=== PATIENT | female | born 1965 | race African-American/Black ===

== ENCOUNTER 2017-04-07 02:55 | Inpatient (IN) | payer MEDICARE ==
[2017-04-07] MEDS ORDERED: FAMOTIDINE INJ/PF 20 MG/2 ML SDV IV ONE (04:00)
[2017-04-07] MEDS ORDERED: METHYLPREDNISOLONE INJ 125 MG/2 ML SDV IV ONE (04:00)
[2017-04-07] MEDS ORDERED: EPINEPHRINE INJ/PF 1 MG/1 ML AMPULE IM ONE ×3 (04:00→05:59)
[2017-04-07] MEDS ORDERED: DIPHENHYDRAMINE HCL 50 MG/ML VIAL IV ONE (04:00)
[2017-04-07] MEDS ORDERED: NORMAL SALINE 250 ML IV PRN (04:01)
--- NOTE | 2017-04-07 04:08 | ER Document Report ---
ED General - General Chief Complaint: Allergic Reaction Stated Complaint: SWOLLEN TONGUE AND LIPS Time Seen by Provider: 04/07/17 03:56 Notes: Patient is a 51-year-old female presents with complaint of swollen tongue and lips having some difficulty swallowing. Patient says she felt like she was having a little bit difficulty swallowing last night before she went to bed and she woke up tonight her tongue swelling and her voice is very hoarse. She has never had this happen before. She does not take any ASHOK inhibitors. She has no new medications. She is on chronic pain medication as well as hydrochlorothiazide and amlodipine for high blood pressure. She denies any recent fevers or infections. No other complaints at this time. No rash. No itching. TRAVEL OUTSIDE OF THE [place] IN LAST 30 DAYS: No Past Medical History - Social History Smoking Status: Current Every Day Smoker Frequency of alcohol use: None Drug Abuse: None Family History: Reviewed & Not Pertinent Renal/ Medical History: Denies: Hx Peritoneal Dialysis Review of Systems - Review of Systems Notes: My Normal Review Basic REVIEW OF SYSTEMS: CONSTITUTIONAL : Denies fever, chills, or sweats. Denies recent illness. EENT: Increased tongue swelling. Some difficulty swallowing. CARDIOVASCULAR: Denies chest pain. RESPIRATORY: Denies cough, cold, or chest congestion. Denies shortness of breath, difficulty breathing, or wheezing. GASTROINTESTINAL: Denies abdominal pain. Denies nausea, vomiting, or diarrhea. Denies constipation. Last BM: MUSCULOSKELETAL: Denies neck or back pain or joint pain or swelling. SKIN: Denies rash or skin lesions. NEUROLOGICAL: Denies altered mental status or loss of consciousness. Denies headache. Denies weakness or paralysis or loss of use of either side. Denies problems with gait or speech. Denies sensory or motor loss. ALL OTHER SYSTEMS REVIEWED AND NEGATIVE. Physical Exam - Vital signs Vitals: Temp Pulse Resp BP Pulse Ox 98.5 F 108 H 16 118/66 97 04/07/17 03:01 04/07/17 03:01 04/07/17 03:01 04/07/17 03:01 04/07/17 03:01 - Notes Notes: General Appearance: Well nourished, alert, cooperative, no acute distress, no obvious discomfort. No stridor. Some hoarseness of voice. Vitals: reviewed, See vital signs table. Head: no swelling or tenderness to the head Eyes: PERRL, EOMI, Conjuctiva clear Mouth: Some tongue enlargement from swelling. Lips appear normal size to me. Throat: Difficult to see full tonsillar beds due to tongue swelling., No airway obstruction, No lymphadenopathy Neck: Supple, no neck tenderness, No thyromegaly Lungs: No wheezing, No rales, No rhonci, No accessory muscle use, good air exchange bilaterally. Heart: Normal rate, Regular rythm, No murmur, no rub Abdomen: Normal BS, soft, No rigidity, No abdominal tenderness, No guarding, no rebound, no abdominal masses, no organomegaly Extremities: strength 5/5 in all extremities, good pulses in all extremities, no swelling or tenderness in the extremities, no edema. Skin: warm, dry, appropriate color, no rash Neuro: speech clear, oriented x 3, normal affect, responds appropriately to questions. Course - Re-evaluation Re-evalutation: 04/07/17 04:35 Patient feels as if she has had some slight improvement after the medications given. I will give her another dose of epinephrine and will continue to monitor to make sure she continues to improve. 04/07/17 05:11 Patient's voice is getting more hoarse and she is having some difficulty breahting now. I talked to her and have informed her that I feel elective intubation is appropriate at this time as any worsening of her airway status will be life threatening and we may not be able to protect her airway if we wait any longer. Patietn is agreeable to intubaiton. I will first do an awake look with ketamine and a glidescope. If i have good visualization that I will proceed with intubation. If visualation is poor than I will contact anesthesia for fiberoptic help. 04/07/17 06:00 I gave the patient 80 mg of ketamine. This provided some sedation. I used a glide scope to do an weight work. Glottis was very edematous. It is too edematous to pass the tube. This was aborted. I allowed patient's awake. Anesthesia and surgery called in. We discussed further care. Anesthesia does not feel comfortable attempting a second intubation. Patient will be taken to the OR fo surgical airway placement. Patient informed of what is going on and agrees with plan. - Vital Signs Vital signs: Temp Pulse Resp BP Pulse Ox 98.5 F 108 H 18 120/86 H 96 04/07/17 03:01 04/07/17 03:01 04/07/17 04:27 04/07/17 04:15 04/07/17 04:16 - Laboratory Result Diagrams: 04/07/17 04:15 04/07/17 04:15 Laboratory results interpreted by me: 04/07/17 04:15 Potassium 3.5 L BUN 23 H Calcium 10.3 H Discharge - Discharge Clinical Impression: Laryngeal edema Angio-edema Qualifiers: Encounter type: initial encounter Qualified Code(s): T78.3XXA - Angioneurotic edema, initial encounter Condition: Serious Admitting Provider: Surgicalist Unit Admitted: OR
[2017-04-07 04:38] LABS: ABSOLUTE LYMPHOCYTES (AUTO) 2.1 10^3/uL (0.5-4.7); ABSOLUTE MONOCYTES (AUTO) 0.6 10^3/uL (0.1-1.4); ABSOLUTE NEUT (AUTO) 7.7 10^3/uL (1.7-8.2); BASOPHILS % (AUTO) 0.2 % (0-2); EOSINOPHILS % (AUTO) 0.4 % (0-6); HEMATOCRIT 40.6 % (36.0-47.0); HEMOGLOBIN 14.2 g/dL (12.0-15.5); LYMPHOCYTES % (AUTO) 19.7 % (13-45); MEAN CORPUSCULAR HGB CONC 35.1 g/dL (32.0-36.0); MEAN CORPUSCULAR VOLUME 94 fl (80-97); RED BLOOD COUNT 4.31 10^6/uL (3.72-5.28); RED CELL DISTRIBUTION WIDTH 12.8 % (11.5-14.0); SEGMENTED NEUTROPHILS % (AUTO) 73.7 % (42-78); WHITE BLOOD COUNT 10.5 10^3/uL (4.0-10.5)
[2017-04-07 04:51] LABS: ANION GAP 11 (5-19); BLOOD UREA NITROGEN 23 mg/dL (7-20); CALCIUM 10.3 mg/dL (8.4-10.2); CARBON DIOXIDE 27 mmol/L (22-30); CHLORIDE 105 mmol/L (98-107); CREATININE RESULT 0.82 mg/dL (0.52-1.25); GLUCOSE 107 mg/dL (75-110); POTASSIUM 3.5 mmol/L (3.6-5.0); SODIUM 143.4 mmol/L (137-145)
[2017-04-07] MEDS ORDERED: RACEPINEPHRINE HCL 2.25% NEB 0.5 ML AMPUL NEB ONE ×2 (05:10→05:14)
[2017-04-07] MEDS ORDERED: KETAMINE HCL INJ 500 MG/10 ML VIAL ONE ×2 (05:15→06:24)
[2017-04-07] MEDS ORDERED: ETOMIDATE INJ/PF 20 MG/10 ML SDV IV ONE ×2 (05:15→05:16)
[2017-04-07] MEDS ORDERED: SUCCINYLCHOLINE CHLORIDE INJ 200 MG/10 ML VIAL IV ONE (05:16)
[2017-04-07] MEDS ORDERED: KETAMINE HCL INJ 500 MG/10 ML VIAL IV ONE (05:16)
[2017-04-07] MEDS ORDERED: PROPOFOL 100 ML IV ONE ×2 (05:51→08:06)
[2017-04-07] MEDS ORDERED: BUPIVACAINE HCL 0.25 % INJ/PF (2.5 MG/1 ML) 30 ML VIAL ONE (06:20)
[2017-04-07] MEDS ORDERED: LIDOCAINE 1% INJ-PF (10 MG/ML) 30 ML SDV ONE ×2 (06:22→06:35)
[2017-04-07] MEDS ORDERED: LIDOCAINE 1% INJ-PF (10 MG/ML) 30 ML SDV INJ ONE ×2 (06:23)
[2017-04-07] MEDS ORDERED: MIDAZOLAM 2 MG/2 ML INJ ONE (06:25)
[2017-04-07] MEDS ORDERED: PROPOFOL INJ 200 MG/20 ML VIAL IV ONE (07:05)
[2017-04-07] MEDS ORDERED: CEFAZOLIN INJ 1 GM VIAL ONE (07:09)
[2017-04-07] MEDS ORDERED: EPHEDRINE SULFATE INJ 50 MG/1 ML AMPULE ONE (07:16)
[2017-04-07] MEDS ORDERED: GLUCAGON,HUMAN RECOMB 1 MG INJ SUBCUT PRN (07:41)
[2017-04-07] MEDS ORDERED: DEXTROSE 50%-WATER 25 GM/50 ML DISP.SYRIN IV PRN ×2 (07:41)
[2017-04-07] MEDS ORDERED: DEXTROSE 40% GEL 15 GM TUBE PO PRN ×2 (07:41)
[2017-04-07] MEDS ORDERED: ONDANSETRON HCL INJ/PF 4 MG/2 ML SDV IV PRN (07:47)
[2017-04-07] MEDS ORDERED: MORPHINE SULFATE 10 MG/ML INJ IV PRN (07:47)
--- NOTE | 2017-04-07 07:53 | OPERATIVE REPORT E ---
Operative Report NAME: JOCELINE GURROLA : 1965 AGE: 51Y DATE OF SURGERY: 04/07/2017 ROOM: ED70 PROCEDURE: Tracheostomy. SURGEON: ANJEL KELLEY M.D. ANESTHESIA: Local MAC. PREOPERATIVE DIAGNOSIS: Angioedema with markedly enlarged tongue and inability to see the vocal cords on an attempt to intubate here. POSTOPERATIVE DIAGNOSIS: Angioedema with markedly enlarged tongue and inability to see the vocal cords on an attempt to intubate here. INDICATION: This is a 51-year-old female who woke up at 2:00 this morning with thickened tongue and difficulty swallowing. Patient immediately went to the emergency room where the ER physician attempted to intubate. Unfortunately, the tongue was so enlarged and ER doctor was not able to see the vocal cords. In the meantime, the patient started to have some difficulty breathing. Because of the difficulty intubating, patient was then taken to the OR after seen by the anesthesiologist. DESCRIPTION OF PROCEDURE: The patient was placed in the supine position and the neck extended and then prepped and draped in the usual sterile fashion. Local anesthesia infiltrated on the midline from the thyroid to the sternal notch. An incision made deep and down in the subcu area with the use of cautery. Further blunt dissection was done and also the use of cautery. The anterior fascia was also identified and divided after placement of local anesthesia. This divided the use of cautery. The muscles on 8 sides were . Next, the trachea was identified. What appears to be the second tracheal ring was then elevated after injecting it with Xylocaine and also injecting down to the fourth ring. Next, the third and fourth tracheal rings were then divided longitudinally with an 11-blade and cruciate incision also made in the middle. Next, with the use of dilator, a number 6 tracheal Shiley tube was in place. It was then connected to the respirator. At this point, patient was given more sedation. The trach was then anchored to the skin with 2-0 Prolene on its 4 corners. The subcu was partially reapproximated with 2-0 PDS. A Xeroform gauze was then placed around the trach. A trach was then placed around the neck and placed through the tracheostomy phalanges. Patient tolerated procedure well. Estimated blood loss was minimal, less than 5 mL. Patient brought to the intensive care unit in guarded condition. DICTATING PHYSICIAN: ANJEL KELLEY M.D. [id number] PHY#: [id number] ID: [id number] JOB#: [id number] ACCT: [id number] cc:ANJEL KELLEY M.D. >
[2017-04-07 08:11] LABS: ARTERIAL BLOOD BASE EXCESS 0.3 mmol/L; ARTERIAL BLOOD O2 SATURATION 94.3 % (94-98)
--- NOTE | 2017-04-07 08:13 | HISTORY AND PHYSICAL E ---
History and Physical NAME: JOCELINE GURROLA : 1965 AGE: 51Y ADMITTED: 04/07/2017 ROOM: 611 CHIEF COMPLAINT: Swollen tongue, difficulty swallowing, and hoarseness. HISTORY OF PRESENT ILLNESS: This is a 51-year-old female who presented to the emergency room with swollen tongue and lips with difficulty swallowing. Patient claims she had some difficulty swallowing last night before she went to bed. Then, she woke up around 2:00 a.m. with her tongue swollen and her voice very hoarse. She never had these episodes in the past. She does not take any ASHOK inhibitors. She has no new medications. She is on chronic pain medication as well as hydrochlorothiazide and amlodipine for high blood pressure. Denies any itching or rash, fever, or chills. SOCIAL HISTORY: Smokes every day. Denies alcohol use. Denies drug abuse. FAMILY HISTORY: Noncontributory. REVIEW OF SYSTEMS: CONSTITUTIONAL: Denies fever, chills, or sweats. ENT: Increased tongue swelling with difficulty swallowing. CARDIOVASCULAR: Denies any chest pains RESPIRATORY: Denies cough, cold, or shortness of breath. GASTROINTESTINAL: Denies abdominal pains, nausea, vomiting, or diarrhea. MUSCULOSKELETAL: Denies back pains. SKIN: Denies rash or itching. NEUROLOGIC: Denies loss of consciousness or headaches. No balance problems. All other systems reviewed and negative. PHYSICAL EXAMINATION: VITAL SIGNS: Temperature 98.5 degrees Fahrenheit, pulse 108 per minute, respiratory 16 per minute, BP 118/66, pulse ox of 97% room air. GENERAL APPEARANCE: Well-nourished, alert, cooperative, no obvious discomfort with hoarseness of voice. No obvious stridor. HEAD: No swelling or tenderness to the head. EYES: PERRL, conjunctiva clear. MOUTH: Tongue enlargement with swelling. LIPS: Normal. THROAT: Unable to visualize tonsillar beds due to tongue swelling and unable to see the vocal cords on attempt to intubate. NECK: Supple. No tenderness. No thyromegaly. LUNGS: Clear. HEART: Slightly tachycardic. ABDOMEN: Soft, nontender. EXTREMITIES: Range of motion is intact. SKIN: Warm and dry. No rash. NEUROLOGIC: Alert and oriented x3. Patient was given medications in the ER, but despite this, patient still has persistent hoarseness and inability of the ER physician to intubate. Her *------* was very edematous and unable to pass a tube, and therefore, intubation was aborted and Anesthesia came in and I also came in and discussed patient's care. It was felt that patient will be better off to have a tracheostomy placed in the OR and that we did. This was explained to the patient and the patient agreed. CLINICAL IMPRESSION: Laryngeal edema. PLAN: Tracheostomy. DICTATING PHYSICIAN: ANJEL KELLEY M.D. [id number] PHY#: [id number] ID: [id number] JOB#: [id number] ACCT: [id number] cc:ANJEL KELLEY M.D. NO Chen LAMB
--- NOTE | 2017-04-07 08:20 | RADIOLOGY REPORT (SQ) ---
EXAM DESCRIPTION: CHEST SINGLE VIEW COMPLETED DATE/TIME: 04/07/2017 8:09 am REASON FOR STUDY: post trach on vent COMPARISON: None. EXAM PARAMETERS: NUMBER OF VIEWS: One view TECHNIQUE: Single frontal radiograph of the chest. RADIATION DOSE: N/A LIMITATIONS: None. FINDINGS: TEMPORARY SUPPORT DEVICES:Tracheostomy tubes identified in appropriate location. Nasogast wes tube identified with tip in side hole below the level of the diaphragm. EKG leads overlie the ch est. Spinal stimulator noted projecting over the lower cervical spine. Partially visualized cervica l fusion hardware noted. LUNGS AND PLEURA: Mild atelectasis noted left lung base. No focal infiltrates. No pneumothorax. No significant pleural effusion. MEDIASTINUM AND HILAR STRUCTURES: No masses. Contour normal. HEART AND VASCULAR STRUCTURES: Heart size normal. Normal vascularity. Aorta normal for age BONES: No acute findings. OTHER: No other significant finding. IMPRESSION: 1. Support tubes and lines as above. 2. Mild left lung base atelectasis. TECHNICAL DOCUMENTATION: JOB ID: [id number] [employer]- All Rights Reserved
[2017-04-07] MEDS ORDERED: NORMAL SALINE 1000 ML 500 ML IV ONE (08:47)
--- NOTE | 2017-04-07 09:13 | PDOC CONSULTATION ---
Consultation Consult Date: 04/07/17 Attending physician:: ANJEL KELLEY Consult reason:: angioedema medical management History of Present Illness Admission Date/PCP: 04/07/17 07:41 History of Present Illness: JOCELINE GURROLA is a 51 year old female with past medical history significant for hypertension who presented to the emergency department with facial oral swelling. History is primarily obtained from the ER and surgery notes as patient is currently sedated and has new tracheostomy placed. Patient apparently became stridorous and need for intubation was established, but ER physician was unable to intubate, and anesthesia was called. Patient was taken to the OR and surgery was called for emergent tracheostomy which was performed successfully. Currently, the hospitalist team is called for medical management of her angioedema. Patient's parents are present at bedside and her history is obtained from them as well as the prior record. Current list of medications are unavailable and are being reconciled by the pharmacy, but review of patient's past fill history for her pharmacy reveals Soma, Percocet 10/325, fentanyl 75 mcg patch, amitriptyline, hydrochlorothiazide , and patient reports recent use of amlodipine. Current list is automatically generated by [employer]. Mother reports the patient does still sporadically have a menstrual cycle. Past Medical History Cardiac Medical History: Reports: Hypertension Psychiatric Medical History: Denies: Depression Past Surgical History Past Surgical History: Reports: Orthopedic Surgery - Possibly spinal surgery/ fusion, Other - Vagal nerve stimulator Social History Smoking Status: Current Every Day Smoker Cigarettes Packs Per Day: 1 Frequency of Alcohol Use: None Hx Recreational Drug Use: No Hx Prescription Drug Abuse: No - Advance Directive Resuscitation Status: Full Code Surrogate healthcare decision maker:: [place] Shay Family History Family History: CVA, Hypertension, Malignancy Parental Family History Reviewed: Yes Children Family History Reviewed: Yes Sibling(s) Family History Reviewed.: Yes Medication/Allergy Allergies/Adverse Reactions: amlodipine [From [facility]] Allergy (Severe, Verified 04/07/17 08:57) Angioneurotic Edema Review of Systems ROS unobtainable: Due to endotracheal tube Physical Exam Vital Signs: Temp Pulse Resp BP Pulse Ox 97.0 F 89 12 83/51 L 98 04/07/17 08:29 04/07/17 08:29 04/07/17 08:49 04/07/17 08:29 04/07/17 08:49 Intake & Output 04/06/17 04/07/17 04/08/17 06:59 06:59 06:59 Output Total 150 Balance -150 Weight 85.8 kg General appearance: PRESENT: no acute distress, well-developed, well-nourished Head exam: PRESENT: atraumatic, normocephalic Eye exam: PRESENT: conjunctiva pink, PERRLA. ABSENT: conjunctival injection, scleral icterus Ear exam: PRESENT: normal external ear exam Mouth exam: PRESENT: moist, tongue midline Throat exam: PRESENT: other - fresh tracheostomy Neck exam: PRESENT: other - Mild mandibular and lip fullness. ABSENT: JVD, lymphadenopathy, thyromegaly, tracheal deviation Respiratory exam: PRESENT: clear to auscultation jeffery, unlabored. ABSENT: crackles, rales, rhonchi, stridor, tachypnea, wheezes Cardiovascular exam: PRESENT: RRR, +S1, +S2. ABSENT: diastolic murmur, gallop, rubs, systolic murmur, tachycardia Pulses: PRESENT: normal dorsalis pedis pul Vascular exam: PRESENT: normal capillary refill GI/Abdominal exam: PRESENT: normal bowel sounds, soft. ABSENT: distended, firm , guarding, mass, organolmegaly, rebound, rigid, tenderness Rectal exam: PRESENT: deferred Extremities exam: PRESENT: full ROM. ABSENT: calf tenderness, clubbing, pedal edema Neurological exam: PRESENT: other - Patient intubated and sedated Psychiatric exam: PRESENT: other - Patient intubated and sedated Skin exam: PRESENT: dry, intact, warm. ABSENT: cyanosis, rash Results Laboratory Results: 04/07/17 08:05 Carbonic Acid 1.53 H HCO3/H2CO3 Ratio 17:1 ABG pH 7.34 L ABG pCO2 50.9 H ABG pO2 75.8 L ABG HCO3 26.8 H ABG O2 Saturation 94.3 ABG Base Excess 0.3 FiO2 50% Impressions: Chest X-Ray 04/07/17 07:45 IMPRESSION: 1. Support tubes and lines as above. 2. Mild left lung base atelectasis. Status: Imported from PACS Assessment & Plan - Diagnosis (1) Angio-edema Qualifiers: Encounter type: initial encounter Qualified Code(s): T78.3XXA - Angioneurotic edema, initial encounter Is this a current diagnosis for this admission?: YesPlan: Place patient on Solu-Medrol 125 IV every 6, Benadryl 50 mg IV every 6, and Pepcid 20 mg IV twice daily This patient that if patient is taking amlodipine, but this is the likely culprit. Other agents known to cause angioedema include narcotics, metoprolol, paroxetine , sirolimus, nifedipine, diltiazem, verapamil, Risperdal, amiodarone, and enteracept and inhaled cocaine. Herbal medications including garlic, sanyak, and ecballium elaterium. Unlikely to be secondary to eosinophilic vasculitis due to lack of peripheral eosinophilia. Unlikely to be associated with other chronic urticarial state as she carries no history of this. Continue to follow this patient, but defer respiratory status management to pulmonary medicine. (2) Acute respiratory failure Qualifiers: Respiratory failure complication: unspecified whether with hypoxia or hypercapnia Qualified Code(s): J96.00 - Acute respiratory failure, unspecified whether with hypoxia or hypercapnia Is this a current diagnosis for this admission?: YesPlan: Patient has hypercapnia/hypoxemia on ABG currently obtained. Patient currently has stable trach in place. Defer to pulmonary medicine who has been consulted for this problem as well as for weaning and management of her ventilator. (3) Hypertension Qualifiers: Hypertension type: essential hypertension Qualified Code(s): I10 - Essential (primary) hypertension Is this a current diagnosis for this admission?: YesPlan: Patient currently mildly hypotensive likely secondary to intravascular volume depletion. Will give IV fluids. (4) Chronic opiate dependence Is this a current diagnosis for this admission?: YesPlan: Concern that this may actually be 1 of patient's underlying medical issues with her angioedema as if patient does not take amlodipine, more likely culprit for this patient is the use of narcotics. Change patient's medication to fentanyl 100 mcg iv q4h prn (5) Chronic pain syndrome Is this a current diagnosis for this admission?: YesPlan: We will replace fentanyl patch when able (6) Tobacco abuse Is this a current diagnosis for this admission?: YesPlan: Nicotine patch and will encourage cessation once patient is awake. - Time Time Spent: 50 to 70 Minutes Medications reviewed and adjusted accordingly: Yes - Plan Summary Plan Summary: Total time spent with patient including patient education, physical examination , discussion with primary surgical team, and formulation of plan was 65 minutes.
[2017-04-07] MEDS ORDERED: POTASSIUM CHLORIDE 20 MEQ/15 ML UDCUP NG ONE (09:30)
[2017-04-07] MEDS: PROPOFOL 100 ML IV PRN ×5 (10:12→21:12)
[2017-04-07] MEDS: POTASSI CL 20 MEQ/50 ML RIDER 20 MEQ/50 ML RTUPB IV SCH ×2 (10:23→11:55)
[2017-04-07] MEDS: FAMOTIDINE INJ/PF 20 MG/2 ML SDV IV SCH ×2 (10:41→21:12)
[2017-04-07] MEDS: NICOTINE 21 MG/24 HR PATCH.TD24 TD SCH (10:41)
[2017-04-07] MEDS: DIPHENHYDRAMINE HCL 50 MG/ML VIAL IV SCH ×3 (10:42→23:30)
[2017-04-07] MEDS: METHYLPREDNISOLONE INJ 125 MG/2 ML SDV IV SCH ×3 (10:42→23:31)
[2017-04-07 10:43] LABS: THYROID STIMULATING HORMONE 0.93 uIU/mL (0.47-4.68)
[2017-04-07] MEDS: FENTANYL CITRATE INJ/PF 100 MCG/2 ML AMPUL IV PRN ×3 (10:44→19:59)
[2017-04-07] MEDS ORDERED: SUCCINYLCHOLINE CHLORIDE INJ 200 MG/10 ML VIAL ONE (10:46)
[2017-04-07] MEDS ORDERED: LORAZEPAM INJ 2 MG/1 ML VIAL ONE (13:27)
[2017-04-07 14:55] LABS: ARTERIAL BLOOD BASE EXCESS -2.1 mmol/L; ARTERIAL BLOOD O2 SATURATION 92.3 % (94-98)
[2017-04-07] MEDS ORDERED: FENTANYL 75 MCG/HR PATCH.TD72 TD ONE (16:30)
[2017-04-07] MEDS: NORMAL SALINE 1000 ML 1,000 ML IV PRN ×2 (17:26→23:32)
[2017-04-07] MEDS: ENOXAPARIN SODIUM INJ 40 MG/0.4 ML DISP.SYRIN SUBCUT SCH (18:45)
--- NOTE | 2017-04-07 19:01 | PDOC CONSULTATION ---
Consultation Consult Date: 04/07/17 Attending physician:: ANJEL KELLEY Consult reason:: acute resp failure History of Present Illness Admission Date/PCP: 04/07/17 06:13 History of Present Illness: JOCELINE GURROLA is a 51 year old femalePresented to the emergency room for episode of increasing shortness of breath was found to have laryngeal and upper airway swelling was subsequently intubated no prior history of angioedema not currently taking ASHOK inhibitors not known to recently have eaten seafood. Social History Information Source: [facility] Records Smoking Status: Current Every Day Smoker Family History Family History: Reviewed & Not Pertinent Parental Family History Reviewed: No Children Family History Reviewed: No Sibling(s) Family History Reviewed.: No Medication/Allergy Home Medications: Amitriptyline HCl [Elavil 50 Mg Tablet] 100 mg PO HSP PRN 04/07/17 Carisoprodol [Soma 350 Mg Tablet] 350 mg PO Q8 04/07/17 Fentanyl [Duragesic 75 Mcg/Hr Transdermal Patch] 1 each TD Q2D 04/07/17 Hydrochlorothiazide 25 mg PO DAILY 04/07/17 Methylnaltrexone Sebastian [Relistor] 12 mg SQ DAILYP PRN 04/07/17 Oxycodone HCl/Acetaminophen [Oxycodone-Acetaminophen 10-325] 1 each PO Q12HP PRN MDD 4 04/07/17 Allergies/Adverse Reactions: amlodipine [From [facility]] Allergy (Severe, Verified 04/07/17 08:57) Angioneurotic Edema Review of Systems ROS unobtainable: Due to endotracheal tube Physical Exam Vital Signs: Temp Pulse Resp BP Pulse Ox 98.9 F 94 30 H 157/129 H 100 04/07/17 06:28 04/07/17 06:28 04/07/17 06:28 04/07/17 06:28 04/07/17 06:28 General appearance: PRESENT: no acute distress, disheveled, well-developed, well -nourished Head exam: PRESENT: atraumatic, normocephalic Eye exam: PRESENT: conjunctiva pale Mouth exam: PRESENT: dry mucosa, neck supple, tongue midline Neck exam: PRESENT: tracheostomy Respiratory exam: PRESENT: clear to auscultation jeffery, decreased breath sounds, symmetrical, unlabored Cardiovascular exam: PRESENT: RRR, +S1, +S2 Pulses: PRESENT: normal radial pulses GI/Abdominal exam: PRESENT: normal bowel sounds, soft. ABSENT: distended, guarding, mass, organolmegaly, rebound, tenderness Rectal exam: PRESENT: deferred Gentrourinary exam: PRESENT: indwelling catheter Musculoskeletal exam: PRESENT: normal inspection Skin exam: PRESENT: dry, warm Results Laboratory Results: 04/07/17 08:05 Carbonic Acid 1.53 H HCO3/H2CO3 Ratio 17:1 ABG pH 7.34 L ABG pCO2 50.9 H ABG pO2 75.8 L ABG HCO3 26.8 H ABG O2 Saturation 94.3 ABG Base Excess 0.3 FiO2 50% Assessment & Plan - Diagnosis (1) Acute respiratory failure Qualifiers: Respiratory failure complication: unspecified whether with hypoxia or hypercapnia Qualified Code(s): J96.00 - Acute respiratory failure, unspecified whether with hypoxia or hypercapnia Is this a current diagnosis for this admission?: YesPlan: Maintain oxygen mentation and ventilation (2) Angio-edema Qualifiers: Encounter type: initial encounter Qualified Code(s): T78.3XXA - Angioneurotic edema, initial encounter Is this a current diagnosis for this admission?: Yes (3) Laryngeal edema Is this a current diagnosis for this admission?: YesPlan: Tracheostomy (4) Tobacco abuse Is this a current diagnosis for this admission?: YesPlan: Stop smoking - Time Critical Time spent with patient: 35 or more minutes - Discussed with surgeon, primary care physician, nurse, RT and [id number] min
[2017-04-08] MEDS: FENTANYL CITRATE INJ/PF 100 MCG/2 ML AMPUL IV PRN (00:56)
[2017-04-08] MEDS: PROPOFOL 100 ML IV PRN ×8 (00:57→22:26)
[2017-04-08 04:42] LABS: HEMATOCRIT 32.6 % (36.0-47.0); MEAN CORPUSCULAR HEMOGLOBIN 32.9 pg (27.0-33.4); MEAN CORPUSCULAR HGB CONC 34.2 g/dL (32.0-36.0); MEAN CORPUSCULAR VOLUME 96 fl (80-97); RED BLOOD COUNT 3.39 10^6/uL (3.72-5.28); RED CELL DISTRIBUTION WIDTH 13.2 % (11.5-14.0); WHITE BLOOD COUNT 16.9 10^3/uL (4.0-10.5)
[2017-04-08 04:46] LABS: HEMOGLOBIN 11.2 g/dL (12.0-15.5)
[2017-04-08 05:23] LABS: ARTERIAL BLOOD BASE EXCESS -3.9 mmol/L; ARTERIAL BLOOD O2 SATURATION 95.8 % (94-98)
[2017-04-08 05:29] LABS: ANION GAP 11 (5-19); BLOOD UREA NITROGEN 15 mg/dL (7-20); CALCIUM 8.8 mg/dL (8.4-10.2); CHLORIDE 114 mmol/L (98-107); CREATININE RESULT 0.61 mg/dL (0.52-1.25); GLUCOSE 145 mg/dL (75-110); MAGNESIUM 1.7 mg/dL (1.6-2.3); SODIUM 141.6 mmol/L (137-145)
[2017-04-08] MEDS: DIPHENHYDRAMINE HCL 50 MG/ML VIAL IV SCH (05:41)
[2017-04-08] MEDS: METHYLPREDNISOLONE INJ 125 MG/2 ML SDV IV SCH ×2 (05:42→22:27)
[2017-04-08 06:16] LABS: CARBON DIOXIDE 17 mmol/L (22-30)
[2017-04-08] MEDS ORDERED: METHYLNALTREXONE BROMIDE SQ PRN (07:52)
--- NOTE | 2017-04-08 07:55 | RADIOLOGY REPORT (SQ) ---
EXAM DESCRIPTION: CHEST SINGLE VIEW COMPLETED DATE/TIME: 04/08/2017 6:37 am REASON FOR STUDY: acute resp failure COMPARISON: 04/07/2017. EXAM PARAMETERS: NUMBER OF VIEWS: One view. TECHNIQUE: Single frontal radiographic view of the chest acquired. RADIATION DOSE: NA LIMITATIONS: None. FINDINGS: LUNGS AND PLEURA: Mild interstitial markings. Small streakiness of the left retrocardiac lung base. MEDIASTINUM AND HILAR STRUCTURES: No masses. Contour normal. HEART AND VASCULAR STRUCTURES: Heart normal in size. Normal vasculature. BONES: No acute findings. HARDWARE: Tracheostomy and NG tube appear uncomplicated. Lower cervical hardware fusion. OTHER: Moderate soft tissue emphysema of the lower neck and bilateral supraclavicular space. IMPRESSION: No significant interval change. TECHNICAL DOCUMENTATION: JOB ID: [id number]
--- NOTE | 2017-04-08 09:19 | PDOC PROGRESS REPORT ---
Subjective Progress Note for:: 04/08/17 Subjective:: Intubated and sedated Physical Exam Vital Signs: Temp Pulse Resp BP Pulse Ox 97.5 F 70 20 101/61 93 04/08/17 08:00 04/08/17 08:00 04/08/17 08:00 04/08/17 08:00 04/08/17 08:00 Intake & Output 04/07/17 04/08/17 04/09/17 06:59 06:59 06:59 Intake Total 3677 Output Total 1045 60 Balance 2632 -60 Weight 88 kg General appearance: PRESENT: no acute distress Throat exam: PRESENT: other - Tracheostomy in place. Site looks clean. No bleeding. Patient with mild diffuse neck and face edema. Respiratory exam: PRESENT: clear to auscultation jeffery Cardiovascular exam: PRESENT: RRR Results Laboratory Results: 04/08/17 04:11 04/08/17 04:11 04/07/17 04/08/17 04/08/17 14:45 04:11 04:11 WBC 16.9 H RBC 3.39 L Hgb 11.2 L D Hct 32.6 L MCV 96 MCH 32.9 MCHC 34.2 RDW 13.2 Plt Count 257 Carbonic Acid 1.07 HCO3/H2CO3 Ratio 20:1 ABG pH 7.41 ABG pCO2 35.4 ABG pO2 62.4 L ABG HCO3 21.9 ABG O2 Saturation 92.3 L ABG Base Excess -2.1 FiO2 24% Sodium 141.6 Potassium 4.0 Chloride 114 H Carbon Dioxide 17 L D Anion Gap 11 BUN 15 Creatinine 0.61 Est GFR ( Amer) > 60 Est GFR (Non-Af Amer) > 60 Glucose 145 H Calcium 8.8 Magnesium 1.7 04/08/17 05:04 WBC RBC Hgb Hct MCV MCH MCHC RDW Plt Count Carbonic Acid 0.85 L HCO3/H2CO3 Ratio 22:1 ABG pH 7.45 ABG pCO2 28.1 L ABG pO2 74.9 L ABG HCO3 19.0 L ABG O2 Saturation 95.8 ABG Base Excess -3.9 FiO2 24% Sodium Potassium Chloride Carbon Dioxide Anion Gap BUN Creatinine Est GFR ( Amer) Est GFR (Non-Af Amer) Glucose Calcium Magnesium 04/08/17 04:11 CK-MB (CK-2) 0.42 Impressions: Chest X-Ray 04/08/17 06:00 IMPRESSION: No significant interval change. Assessment & Plan - Diagnosis (1) Angio-edema Qualifiers: Encounter type: initial encounter Qualified Code(s): T78.3XXA - Angioneurotic edema, initial encounter Is this a current diagnosis for this admission?: YesPlan: Status post emergency tracheostomy. Site looks good. Defer to pulmonary for ventilatory management but she is on minimal settings.
[2017-04-08] MEDS ORDERED: AMPICILLIN SODIUM/SULBACTAM NA 3 GM in NORMAL SALINE 100 ML IV ONE (10:00)
[2017-04-08] MEDS: FAMOTIDINE INJ/PF 20 MG/2 ML SDV IV SCH ×2 (10:57→22:27)
[2017-04-08] MEDS: NICOTINE 21 MG/24 HR PATCH.TD24 TD SCH (10:57)
[2017-04-08] MEDS: AMPICILLIN SODIUM/SULBACTAM NA 3 GM in NORMAL SALINE 100 ML IV SCH ×2 (12:41→22:26)
[2017-04-08 13:08] LABS: APPEARANCE,URINE CLEAR; BILIRUBIN,URINE NEGATIVE (NEGATIVE); GLUCOSE, URINE NEGATIVE (NEGATIVE); KETONES,URINE TRACE mg/dL (NEGATIVE); LEUKOCYTE ESTERASE,URINE NEGATIVE (NEGATIVE); NITRITE,URINE NEGATIVE (NEGATIVE); PROTEIN,URINE NEGATIVE (NEGATIVE); URINE SPECIFIC GRAVITY 1.021; UROBILINOGEN,URINE NEGATIVE mg/dL (<2.0)
--- NOTE | 2017-04-08 13:44 | RADIOLOGY REPORT (SQ) ---
EXAM DESCRIPTION: CHEST SINGLE VIEW COMPLETED DATE/TIME: 04/08/2017 1:33 pm REASON FOR STUDY: increased subcut emphysema COMPARISON: 04/07/2017, 0802 hours chest film 04/08/2017, 0608 hours chest film EXAM PARAMETERS: NUMBER OF VIEWS: One view. TECHNIQUE: Single frontal radiographic view of the chest acquired. RADIATION DOSE: NA LIMITATIONS: None. FINDINGS: LUNGS AND PLEURA: No opacities, masses or pneumothorax. No pleural effusion. MEDIASTINUM AND HILAR STRUCTURES: There is pneumomediastinum extending up into the neck soft tissues and supraclavicular regions bilaterally. HEART AND VASCULAR STRUCTURES: Heart normal in size. Normal vasculature. BONES: No acute findings. HARDWARE: Tracheostomy tube tip in the upper trachea. Nasogastric tube tip and side port in the stom ach. Neurostimulator electrodes are seen over the lower cervical region. OTHER: For findings discussed with Dr. Bob at the time of dictation, 1330 hours 04/08/2017. IMPRESSION: Pneumomediastinum extending into the neck soft tissues and bilateral supraclavicular reg ion, similar compared to 04/08/2017, 608 hours chest film. Findings discussed with Dr. Bob TECHNICAL DOCUMENTATION: JOB ID: [id number]
--- NOTE | 2017-04-08 13:49 | RADIOLOGY REPORT (SQ) ---
EXAM DESCRIPTION: SOFT TISSUE NECK COMPLETED DATE/TIME: 04/08/2017 1:33 pm REASON FOR STUDY: increased subcut emphysema COMPARISON: Prior chest films 04/07/2017, 0802 hours 04/08/2017, 0608 hours 04/08/2017, 1310 hours NUMBER OF VIEWS: Two views. TECHNIQUE: AP and lateral radiographic image of the soft tissues of the neck. LIMITATIONS: Portable technique in the ICU, diffuse subcutaneous air in the neck obscures the pharyn geal and laryngeal structures FINDINGS: Extensive soft tissue air is present throughout the neck and supraclavicular regions exten ding into the submandibular soft tissues. There is a tracheostomy tube with the tip in the upper trachea by plain film. Nasogastric tube is seen over the field of view. Old cervical fusion at C3-4 and C4-5, the cervical neurostimulator electrodes are present. No right or left apical pneumothorax. Small amount of air in the upper mediastinum similar compared to previous exams. This result was discussed with Dr. Bob 1330 hours 04/08/2017 IMPRESSION: Extensive soft tissue air throughout the neck soft tissues, supraclavicular regions and upper mediastinum post emergency tracheostomy placement yesterday. By plain film, the tracheostomy t ube tip is in the upper 3rd of the trachea, in good positioning TECHNICAL DOCUMENTATION: JOB ID: [id number] [employer]- All Rights Reserved
[2017-04-08] MEDS ORDERED: ONDANSETRON HCL INJ/PF 4 MG/2 ML SDV IV PRN (15:00)
--- NOTE | 2017-04-08 15:11 | RADIOLOGY REPORT (SQ) ---
EXAM DESCRIPTION: CT SOFT TISSUE NECK WITHOUT COMPLETED DATE/TIME: 04/08/2017 2:34 pm REASON FOR STUDY: SUBCUTANEOUS AIR mediastinal air post emergent tracheostomy COMPARISON: Chest films 04/07/2017, 04/08/2017 Soft tissue neck films 04/08/2017 CT chest 04/08/2017 TECHNIQUE: Noncontrast scanning from skull base through lung apices with review of bone, soft tissue and lung windows. Reconstructed coronal and sagittal MPR images reviewed. All images stored on PAC S. All CT scanners at this facility use dose modulation, iterative reconstruction, and/or weight based d osing when appropriate to reduce radiation dose to as low as reasonably achievable (ALARA). [facility]: Dose Right [facility]: CareDose [facility]: Dose Right [facility]: Teradose 4D [facility]: [employer] RADIATION DOSE: 21 mGy. LIMITATIONS: None. FINDINGS: There is diffuse soft tissue air throughout the upper mediastinum, thoracic inlet, right a nd left supraclavicular and soft tissue neck, into the prevertebral space and infratemporal fossa on the left. There is a nasogastric tube with the tip coursing through the nasal cavity, naso sergio and hypopharynx and upper esophagus. There is a tracheostomy present, with the balloon cuff mildly hyperinflated. The tracheostomy tube t ip is in the mid trachea. There is soft tissue air immediately dorsal to the trachea, membranous tra emmanuel injury could not be excluded. These images were reviewed with and findings were discussed with Dr. Mariscal, 1440 hours 04/08/2017. SKULL BASE: Intact. MAJOR SALIVARY GLANDS: No solid or cystic masses. No inflammatory changes. LYMPHADENOPATHY: No adenopathy. MUCOSAL MASSES OR ASYMMETRY: No mucosal masses or asymmetry. LARYNX/CORDS: There is persistent soft tissue swelling of the aryepiglottic folds width supraglottic airway narrowing best shown on axial images 51-55. LUNG APICES: Clear. No pneumothorax BONES: Old cervical fusion at C3-4 and C4-5 with anterior hardware. Dorsal column stimulator is also present at this level, within the spinal canal. THYROID: Diffusely enlarged PARANASAL SINUSES: Clear. OTHER: No other significant finding. IMPRESSION: Diffuse soft tissue air, would air along the dorsal aspect of the trachea in the upper m ediastinum. Membranous trachea injury could not be excluded. Tracheostomy tube tip in the midtrachea Findings discussed with the Surgical attending, 1440 hours 04/08/2017. TECHNICAL DOCUMENTATION: JOB ID: [id number] Quality ID # [id number]: Final reports with documentation of one or more dose reduction techniques (e.g., Au tomated exposure control, adjustment of the mA and/or kV according to patient size, use of iterative reconstruction technique) 2010 [employer]- All Rights Reserved
--- NOTE | 2017-04-08 15:18 | RADIOLOGY REPORT (SQ) ---
EXAM DESCRIPTION: CT CHEST WITHOUT COMPLETED DATE/TIME: 04/08/2017 2:34 pm REASON FOR STUDY: CHECK THRACHIAL POSITION COMPARISON: CT soft tissue neck same date Soft tissue neck plain films 04/08/2017 Chest films 04/08/2017, 04/07/2017 TECHNIQUE: CT scan performed of the chest without intravenous contrast. Images reviewed with lung, soft tissue and bone windows. Reconstructed coronal and sagittal MPR images reviewed. All images st ored on PACS. All CT scanners at this facility use dose modulation, iterative reconstruction, and/or weight based d osing when appropriate to reduce radiation dose to as low as reasonably achievable (ALARA). [facility]: Dose Right [facility]: CareDose [facility]: Dose Right [facility]: Teradose 4D [facility]: [employer] RADIATION DOSE: Up-to-date CT equipment and radiation dose reduction techniques were employed. CTDIv ol: 17.4 mGy. DLP: 618 mGy-cm. mGy. LIMITATIONS: No technical limitations. FINDINGS: There is diffuse soft tissue air throughout the upper mediastinum, thoracic inlet, right a nd left supraclavicular regions. There is a nasogastric tube with the tip coursing through the esophagus to the stomach fundus. Stoma ch fundus is decompressed. There is a tracheostomy present, with the balloon cuff mildly hyperinflated. The tracheostomy tube t ip is in the mid trachea. There is soft tissue air immediately dorsal to the trachea, membranous tra emmanuel injury could not be excluded. These images were reviewed with and findings were discussed with Dr. Mariscal, 1440 hours 04/08/2017. These findings are best shown on sagittal reconstruction images 38-41 , and axial images 22 through 36. LUNGS AND PLEURA: No pneumothorax. There is dependent atelectasis at the right and left lung bases. No pulmonary edema. No worrisome pulmonary nodules. HILAR AND MEDIASTINAL STRUCTURES: Diffuse pneumomediastinum HEART AND VASCULAR STRUCTURES: No aneurysm. No pericardial effusion. UPPER ABDOMEN: No significant findings. Limited exam. THYROID AND OTHER SOFT TISSUES: No masses. No adenopathy. BONES: Old cervical fusion with hardware, dorsal column stimulator electrodes. OTHER: At the upper edge of the field of view, there is persistent edema along the aryepiglottic fold s, and narrowing of the supraglottic laryngeal airway. IMPRESSION: Post emergent tracheostomy placement, with the tip of the tracheostomy tube in the upper trachea. There is mild hyperinflation of the balloon. Mediastinal air is present worrisome for mem branous trachea injury. Findings discussed with the Surgical attending as above. The soft tissue air throughout the mediastinum and supraclavicular regions Bibasilar atelectasis are TECHNICAL DOCUMENTATION: JOB ID: [id number] Quality ID # [id number]: Final reports with documentation of one or more dose reduction techniques (e.g., Au tomated exposure control, adjustment of the mA and/or kV according to patient size, use of iterative reconstruction technique) 2010 [employer]- All Rights Reserved
[2017-04-08] MEDS ORDERED: DIPHENHYDRAMINE HCL 50 MG/ML VIAL IV SCH (15:45)
--- NOTE | 2017-04-08 15:58 | PDOC PROGRESS REPORT ---
Subjective Progress Note for:: 04/08/17 Subjective:: pt noted with sub-cutaneous emphysema Physical Exam Vital Signs: Temp Pulse Resp BP Pulse Ox 97.5 F 66 20 114/70 95 04/08/17 12:00 04/08/17 12:00 04/08/17 12:00 04/08/17 12:00 04/08/17 12:15 Intake & Output 04/07/17 04/08/17 04/09/17 06:59 06:59 06:59 Intake Total 3677 Output Total 1045 235 Balance 2632 -235 Weight 88 kg General appearance: PRESENT: no acute distress Neck exam: PRESENT: tracheostomy, other - With crepitus neck extending into the jaw. Not tight Respiratory exam: PRESENT: clear to auscultation jeffery Cardiovascular exam: PRESENT: RRR Results Laboratory Results: 04/08/17 04:11 04/08/17 04:11 04/08/17 04/08/17 04/08/17 04:11 04:11 05:04 WBC 16.9 H RBC 3.39 L Hgb 11.2 L D Hct 32.6 L MCV 96 MCH 32.9 MCHC 34.2 RDW 13.2 Plt Count 257 Carbonic Acid 0.85 L HCO3/H2CO3 Ratio 22:1 ABG pH 7.45 ABG pCO2 28.1 L ABG pO2 74.9 L ABG HCO3 19.0 L ABG O2 Saturation 95.8 ABG Base Excess -3.9 FiO2 24% Sodium 141.6 Potassium 4.0 Chloride 114 H Carbon Dioxide 17 L D Anion Gap 11 BUN 15 Creatinine 0.61 Est GFR ( Amer) > 60 Est GFR (Non-Af Amer) > 60 Glucose 145 H Calcium 8.8 Magnesium 1.7 Urine Color Urine Appearance Urine pH Ur Specific [place] Urine Protein Urine Glucose (UA) Urine Ketones Urine Blood Urine Nitrite Ur Leukocyte Esterase Urine WBC (Auto) Urine RBC (Auto) 04/08/17 12:45 WBC RBC Hgb Hct MCV MCH MCHC RDW Plt Count Carbonic Acid HCO3/H2CO3 Ratio ABG pH ABG pCO2 ABG pO2 ABG HCO3 ABG O2 Saturation ABG Base Excess FiO2 Sodium Potassium Chloride Carbon Dioxide Anion Gap BUN Creatinine Est GFR ( Amer) Est GFR (Non-Af Amer) Glucose Calcium Magnesium Urine Color YELLOW Urine Appearance CLEAR Urine pH 6.0 Ur Specific [place] 1.021 Urine Protein NEGATIVE Urine Glucose (UA) NEGATIVE Urine Ketones TRACE H Urine Blood NEGATIVE Urine Nitrite NEGATIVE Ur Leukocyte Esterase NEGATIVE Urine WBC (Auto) 0 Urine RBC (Auto) 6 04/08/17 04:11 CK-MB (CK-2) 0.42 Impressions: Chest CT 04/08/17 00:00 IMPRESSION: Post emergent tracheostomy placement, with the tip of the tracheostomy tube in the upper trachea. There is mild hyperinflation of the balloon. Mediastinal air is present worrisome for membranous trachea injury. Findings discussed with the Surgical attending as above. The soft tissue air throughout the mediastinum and supraclavicular regions Bibasilar atelectasis are Soft Tissue Neck CT 04/08/17 00:00 IMPRESSION: Diffuse soft tissue air, would air along the dorsal aspect of the trachea in the upper mediastinum. Membranous trachea injury could not be excluded. Tracheostomy tube tip in the midtrachea Findings discussed with the Surgical attending, 1440 hours 04/08/2017. Soft Tissue Neck X-Ray 04/08/17 00:00 IMPRESSION: Extensive soft tissue air throughout the neck soft tissues, supraclavicular regions and upper mediastinum post emergency tracheostomy placement yesterday. By plain film, the tracheostomy tube tip is in the upper 3rd of the trachea, in good positioning Chest X-Ray 04/08/17 06:00 IMPRESSION: No significant interval change. Assessment & Plan - Diagnosis (1) Angio-edema Qualifiers: Encounter type: initial encounter Qualified Code(s): T78.3XXA - Angioneurotic edema, initial encounter Is this a current diagnosis for this admission?: YesPlan: Status post emergency tracheostomy. Patient now with subcutaneous emphysema. CT of the neck and chest was obtained which demonstrated no pneumothorax but she does have extensive pneumomediastinum and subcutaneous emphysema. The tracheostomy is in the trachea. However there is air behind the trachea and the balloon does appear to be hyperinflated. Patient's ventilatory rate was set at 20 and I believe hyperventilation is contributing to this subcutaneous emphysema problem. Will decrease the rate to 12. Will decrease insufflation pressure of the cuff but will not risk manipulation of the trach in the face of persistent angioedema that is seen on CT scan. I have discussed this case with anesthesia as well as ENT and unfortunately they do not have any concrete suggestions at this time other than possible transfer. I do not want to risk loss of airway during transfer in this pt who is being ventilated well currently and who still has angioedema. will continue steroids in light of angioedema seen on ct.
[2017-04-08] MEDS ORDERED: METHYLPREDNISOLONE INJ 125 MG/2 ML SDV IV ONE (16:00)
--- NOTE | 2017-04-08 16:30 | RADIOLOGY REPORT (SQ) ---
EXAM DESCRIPTION: CHEST SINGLE VIEW COMPLETED DATE/TIME: 04/08/2017 4:11 pm REASON FOR STUDY: check trach placement COMPARISON: Multiple previous films today, most recently 1310 hours EXAM PARAMETERS: NUMBER OF VIEWS: One view. TECHNIQUE: Single frontal radiographic view of the chest acquired. RADIATION DOSE: NA LIMITATIONS: None. FINDINGS: LUNGS AND PLEURA: No pneumothorax. Left retrocardiac atelectasis. No pleural effusions. No right-sided infiltrates. MEDIASTINUM AND HILAR STRUCTURES: Pneumomediastinum with air in the supraclavicular regions and neck soft tissues is similar compared to films earlier today. HEART AND VASCULAR STRUCTURES: Heart normal in size. Normal vasculature. BONES: No acute findings. HARDWARE: Tracheostomy tube unchanged, tip in left mid to upper trachea. Nasogastric tube tip and si de port in the stomach. Cervical electrodes in the soft tissues and spinal canal, old lower cervical fusion. OTHER: No other significant finding. IMPRESSION: No change from 04/08/2017, 1310 hours. Imaging reviewed and discussed with Dr Mariscal TECHNICAL DOCUMENTATION: JOB ID: [id number]
[2017-04-08] MEDS: CARISOPRODOL 350 MG TABLET PO SCH ×2 (16:33→22:28)
--- NOTE | 2017-04-08 16:57 | PDOC PROGRESS REPORT ---
Subjective Progress Note for:: 04/08/17 Subjective:: Tracheostomy tube and sedated Physical Exam Vital Signs: Temp Pulse Resp BP Pulse Ox 97.5 F 70 20 101/61 93 04/08/17 08:00 04/08/17 08:00 04/08/17 08:00 04/08/17 08:00 04/08/17 08:00 Intake & Output 04/07/17 04/08/17 04/09/17 06:59 06:59 06:59 Intake Total 3677 Output Total 1045 60 Balance 2632 -60 Weight 88 kg General appearance: PRESENT: no acute distress, disheveled, well-developed, well -nourished Head exam: PRESENT: atraumatic, normocephalic Eye exam: PRESENT: conjunctiva pale Mouth exam: PRESENT: dry mucosa, tongue midline Teeth exam: PRESENT: poor dentation Neck exam: PRESENT: tracheostomy, other - Progressive subcutaneous emphysema. ABSENT: carotid bruit, JVD, lymphadenopathy, thyromegaly Adult Head Front/Back Image: 1 - subq emphysema 2 - subq emphysema 3 - subq emphysema Respiratory exam: PRESENT: rhonchi, symmetrical, unlabored Cardiovascular exam: PRESENT: RRR, +S1, +S2 Pulses: PRESENT: normal radial pulses GI/Abdominal exam: PRESENT: normal bowel sounds, soft. ABSENT: distended, guarding, mass, organolmegaly, rebound, tenderness Rectal exam: PRESENT: deferred Gentrourinary exam: PRESENT: indwelling catheter Musculoskeletal exam: PRESENT: normal inspection Skin exam: PRESENT: dry, warm Results Laboratory Results: 04/08/17 04:11 04/08/17 04:11 04/07/17 04/08/17 04/08/17 14:45 04:11 04:11 WBC 16.9 H RBC 3.39 L Hgb 11.2 L D Hct 32.6 L MCV 96 MCH 32.9 MCHC 34.2 RDW 13.2 Plt Count 257 Carbonic Acid 1.07 HCO3/H2CO3 Ratio 20:1 ABG pH 7.41 ABG pCO2 35.4 ABG pO2 62.4 L ABG HCO3 21.9 ABG O2 Saturation 92.3 L ABG Base Excess -2.1 FiO2 24% Sodium 141.6 Potassium 4.0 Chloride 114 H Carbon Dioxide 17 L D Anion Gap 11 BUN 15 Creatinine 0.61 Est GFR ( Amer) > 60 Est GFR (Non-Af Amer) > 60 Glucose 145 H Calcium 8.8 Magnesium 1.7 04/08/17 05:04 WBC RBC Hgb Hct MCV MCH MCHC RDW Plt Count Carbonic Acid 0.85 L HCO3/H2CO3 Ratio 22:1 ABG pH 7.45 ABG pCO2 28.1 L ABG pO2 74.9 L ABG HCO3 19.0 L ABG O2 Saturation 95.8 ABG Base Excess -3.9 FiO2 24% Sodium Potassium Chloride Carbon Dioxide Anion Gap BUN Creatinine Est GFR ( Amer) Est GFR (Non-Af Amer) Glucose Calcium Magnesium 04/08/17 04:11 CK-MB (CK-2) 0.42 Impressions: Chest X-Ray 04/08/17 06:00 IMPRESSION: No significant interval change. Assessment & Plan - Diagnosis (1) Acute respiratory failure Qualifiers: Respiratory failure complication: unspecified whether with hypoxia or hypercapnia Qualified Code(s): J96.00 - Acute respiratory failure, unspecified whether with hypoxia or hypercapnia Is this a current diagnosis for this admission?: YesPlan: resp comp for metabolic acidosis (2) Angio-edema Qualifiers: Encounter type: initial encounter Qualified Code(s): T78.3XXA - Angioneurotic edema, initial encounter Is this a current diagnosis for this admission?: YesPlan: airway obstruction (3) Laryngeal edema Is this a current diagnosis for this admission?: YesPlan: angioedema (4) Tobacco abuse Is this a current diagnosis for this admission?: YesPlan: Stop smoking - Time Critical Time spent with patient: 35 or more minutes - talked with rn x 3; family; RT x 2 and (PCP)surgery concerned with increasing subcutaneous 65 min
[2017-04-08 17:59] LABS: ARTERIAL BLOOD BASE EXCESS -5.6 mmol/L; ARTERIAL BLOOD O2 SATURATION 92.4 % (94-98)
[2017-04-08] MEDS: ENOXAPARIN SODIUM INJ 40 MG/0.4 ML DISP.SYRIN SUBCUT SCH (18:27)
--- NOTE | 2017-04-08 19:57 | PDOC PROGRESS REPORT ---
Subjective Progress Note for:: 04/08/17 Subjective:: Patient intubated and sedated and unable to obtain review of systems from her Patient has had interval development of subcutaneous air overnight Physical Exam Vital Signs: Temp Pulse Resp BP Pulse Ox 98.1 F 65 21 H 127/77 H 94 04/08/17 15:53 04/08/17 18:00 04/08/17 18:00 04/08/17 18:00 04/08/17 18:00 Intake & Output 04/07/17 04/08/17 04/09/17 06:59 06:59 06:59 Intake Total 3677 1371 Output Total 1045 785 Balance 2632 586 Weight 88 kg Exam: General: Intubated and sedated s HEENT: AT/NC, PERRL, oropharynx is moist, pink, no scleral icterus, no conjunctival injection, palpable subcutaneous air Neck: Tracheostomy midline with surrounding subcutaneous air Chest: Clear to auscultation bilaterally, no wheezes rhonchi or rales CV: Regular rate and rhythm, normal S1 and S2, no murmur, rub, or gallop Abdomen: Soft, nontender to palpation, nondistended, active bowel sounds; no rebound, rigidity, or guarding Extremities: No cyanosis, clubbing or edema Results Laboratory Results: 04/08/17 04:11 04/08/17 04:11 04/08/17 04/08/17 04/08/17 04:11 04:11 05:04 WBC 16.9 H RBC 3.39 L Hgb 11.2 L D Hct 32.6 L MCV 96 MCH 32.9 MCHC 34.2 RDW 13.2 Plt Count 257 Carbonic Acid 0.85 L HCO3/H2CO3 Ratio 22:1 ABG pH 7.45 ABG pCO2 28.1 L ABG pO2 74.9 L ABG HCO3 19.0 L ABG O2 Saturation 95.8 ABG Base Excess -3.9 FiO2 24% Sodium 141.6 Potassium 4.0 Chloride 114 H Carbon Dioxide 17 L D Anion Gap 11 BUN 15 Creatinine 0.61 Est GFR ( Amer) > 60 Est GFR (Non-Af Amer) > 60 Glucose 145 H Calcium 8.8 Magnesium 1.7 Urine Color Urine Appearance Urine pH Ur Specific [place] Urine Protein Urine Glucose (UA) Urine Ketones Urine Blood Urine Nitrite Ur Leukocyte Esterase Urine WBC (Auto) Urine RBC (Auto) 04/08/17 04/08/17 12:45 17:50 WBC RBC Hgb Hct MCV MCH MCHC RDW Plt Count Carbonic Acid 0.99 L HCO3/H2CO3 Ratio 18:1 ABG pH 7.37 ABG pCO2 33.0 L ABG pO2 64.7 L ABG HCO3 18.7 L ABG O2 Saturation 92.4 L ABG Base Excess -5.6 FiO2 24% Sodium Potassium Chloride Carbon Dioxide Anion Gap BUN Creatinine Est GFR ( Amer) Est GFR (Non-Af Amer) Glucose Calcium Magnesium Urine Color YELLOW Urine Appearance CLEAR Urine pH 6.0 Ur Specific [place] 1.021 Urine Protein NEGATIVE Urine Glucose (UA) NEGATIVE Urine Ketones TRACE H Urine Blood NEGATIVE Urine Nitrite NEGATIVE Ur Leukocyte Esterase NEGATIVE Urine WBC (Auto) 0 Urine RBC (Auto) 6 04/08/17 04:11 CK-MB (CK-2) 0.42 Impressions: Chest CT 04/08/17 00:00 IMPRESSION: Post emergent tracheostomy placement, with the tip of the tracheostomy tube in the upper trachea. There is mild hyperinflation of the balloon. Mediastinal air is present worrisome for membranous trachea injury. Findings discussed with the Surgical attending as above. The soft tissue air throughout the mediastinum and supraclavicular regions Bibasilar atelectasis are Soft Tissue Neck CT 04/08/17 00:00 IMPRESSION: Diffuse soft tissue air, would air along the dorsal aspect of the trachea in the upper mediastinum. Membranous trachea injury could not be excluded. Tracheostomy tube tip in the midtrachea Findings discussed with the Surgical attending, 1440 hours 04/08/2017. Soft Tissue Neck X-Ray 04/08/17 00:00 IMPRESSION: Extensive soft tissue air throughout the neck soft tissues, supraclavicular regions and upper mediastinum post emergency tracheostomy placement yesterday. By plain film, the tracheostomy tube tip is in the upper 3rd of the trachea, in good positioning Chest X-Ray 04/08/17 06:00 IMPRESSION: No significant interval change. Assessment & Plan - Diagnosis (1) Angio-edema Qualifiers: Encounter type: initial encounter Qualified Code(s): T78.3XXA - Angioneurotic edema, initial encounter Is this a current diagnosis for this admission?: YesPlan: Resume patient on Solu-Medrol 125 IV every 6, Benadryl 50 mg IV every 6, and Pepcid 20 mg IV twice daily This patient that if patient is taking amlodipine, but this is the likely culprit. Other agents known to cause angioedema include narcotics, metoprolol, paroxetine , sirolimus, nifedipine, diltiazem, verapamil, Risperdal, amiodarone, and enteracept and inhaled cocaine. Herbal medications including garlic, sanyak, and ecballium elaterium. Unlikely to be secondary to eosinophilic vasculitis due to lack of peripheral eosinophilia. Unlikely to be associated with other chronic urticarial state as she carries no history of this. Continue to follow this patient, but defer respiratory status management to pulmonary medicine. (2) Acute respiratory failure Qualifiers: Respiratory failure complication: unspecified whether with hypoxia or hypercapnia Qualified Code(s): J96.00 - Acute respiratory failure, unspecified whether with hypoxia or hypercapnia Is this a current diagnosis for this admission?: YesPlan: Patient has hypercapnia/hypoxemia on ABG currently obtained. Patient currently has stable trach in place. Defer to pulmonary medicine who has been consulted for this problem as well as for weaning and management of her ventilator. (3) Hypertension Qualifiers: Hypertension type: essential hypertension Qualified Code(s): I10 - Essential (primary) hypertension Is this a current diagnosis for this admission?: YesPlan: Patient currently mildly hypotensive likely secondary to intravascular volume depletion. Will give IV fluids. (4) Chronic opiate dependence Is this a current diagnosis for this admission?: YesPlan: Concern that this may actually be 1 of patient's underlying medical issues with her angioedema as if patient does not take amlodipine, more likely culprit for this patient is the use of narcotics. Change patient's medication to fentanyl 100 mcg iv q4h prn (5) Chronic pain syndrome Is this a current diagnosis for this admission?: Yes (6) Tobacco abuse Is this a current diagnosis for this admission?: Yes (7) Subcutaneous emphysema after procedure Is this a current diagnosis for this admission?: YesPlan: Suspect this is likely due to her emergent tracheostomy. Although impressive, there is little to do for this at this time. There is concern for tracheal mucosal trauma and ENT should be consulted if surgery feels this is appropriate. I did discuss this case with the surgeon. - Time Time Spent with patient: 25-34 minutes
[2017-04-08] MEDS: NORMAL SALINE 1000 ML 1,000 ML IV PRN (22:28)
[2017-04-09] MEDS: PROPOFOL 100 ML IV PRN ×3 (00:39→06:04)
[2017-04-09] MEDS: FENTANYL CITRATE INJ/PF 100 MCG/2 ML AMPUL IV PRN ×3 (00:43→21:09)
[2017-04-09] MEDS: AMPICILLIN SODIUM/SULBACTAM NA 3 GM in NORMAL SALINE 100 ML IV SCH ×4 (02:48→21:08)
[2017-04-09 04:42] LABS: ABSOLUTE LYMPHOCYTES (AUTO) 1.6 10^3/uL (0.5-4.7); ABSOLUTE MONOCYTES (AUTO) 0.4 10^3/uL (0.1-1.4); BASOPHILS % (AUTO) 0.3 % (0-2); HEMATOCRIT 31.2 % (36.0-47.0); HEMOGLOBIN 10.8 g/dL (12.0-15.5); HGB HCT DIFFERENCE 1.2; LYMPHOCYTES % (AUTO) 10.7 % (13-45); MEAN CORPUSCULAR HEMOGLOBIN 33.6 pg (27.0-33.4); MEAN CORPUSCULAR HGB CONC 34.7 g/dL (32.0-36.0); MEAN CORPUSCULAR VOLUME 97 fl (80-97); MONOCYTES % (AUTO) 2.9 % (3-13); RED BLOOD COUNT 3.23 10^6/uL (3.72-5.28); RED CELL DISTRIBUTION WIDTH 13.2 % (11.5-14.0); SEGMENTED NEUTROPHILS % (AUTO) 86.1 % (42-78); WHITE BLOOD COUNT 15.1 10^3/uL (4.0-10.5)
[2017-04-09 05:04] LABS: ALANINE AMINOTRANSFERASE 39 U/L (9-52); ALBUMIN 2.9 g/dL (3.5-5.0); ALKALINE PHOSPHATASE 62 U/L (38-126); ANION GAP 8 (5-19); ASPARTATE AMINO TRANSFERASE 27 U/L (14-36); BILIRUBIN,DIRECT 0.4 mg/dL (0.0-0.4); BILIRUBIN,TOTAL 0.4 mg/dL (0.2-1.3); BLOOD UREA NITROGEN 13 mg/dL (7-20); CALCIUM 8.3 mg/dL (8.4-10.2); CARBON DIOXIDE 19 mmol/L (22-30); CHLORIDE 115 mmol/L (98-107); CREATININE RESULT 0.61 mg/dL (0.52-1.25); GLUCOSE 135 mg/dL (75-110); MAGNESIUM 1.8 mg/dL (1.6-2.3); POTASSIUM 4.1 mmol/L (3.6-5.0); SODIUM 142.2 mmol/L (137-145); TOTAL PROTEIN 5.7 g/dL (6.3-8.2)
[2017-04-09 05:53] LABS: ARTERIAL BLOOD BASE EXCESS -3.8 mmol/L; ARTERIAL BLOOD O2 SATURATION 93.4 % (94-98)
[2017-04-09] MEDS: CARISOPRODOL 350 MG TABLET PO SCH ×3 (06:03→21:09)
[2017-04-09] MEDS: METHYLPREDNISOLONE INJ 125 MG/2 ML SDV IV SCH ×3 (06:03→21:09)
--- NOTE | 2017-04-09 08:12 | RADIOLOGY REPORT (SQ) ---
EXAM DESCRIPTION: CHEST SINGLE VIEW COMPLETED DATE/TIME: 04/09/2017 7:21 am REASON FOR STUDY: acute resp failure COMPARISON: Prior chest films 04/07/2017, 04/08/2017 EXAM PARAMETERS: NUMBER OF VIEWS: One view. TECHNIQUE: Single frontal radiographic view of the chest acquired. RADIATION DOSE: NA LIMITATIONS: None. FINDINGS: LUNGS AND PLEURA: No pneumothorax. There is patchy consolidation in the left lower lobe atelectasis versus pneumonia. This is more prom inent than on the prior film 04/08/2017, 1600 hours. No right-sided infiltrates. No right or left pleural effusion. MEDIASTINUM AND HILAR STRUCTURES: Slight decrease in pneumomediastinum and supraclavicular air compar ed to yesterday's studies. HEART AND VASCULAR STRUCTURES: Heart normal in size. Normal vasculature. BONES: No acute findings. HARDWARE: Tracheostomy tube tip in the upper trachea in good positioning. Nasogastric tube tip and s maida port in the stomach. OTHER: No other significant finding. IMPRESSION: Slight increase in left lower lobe consolidation Decrease in mediastinal and supraclavicular air Tracheostomy and nasogastric tubes in good positioning. TECHNICAL DOCUMENTATION: JOB ID: [id number]
[2017-04-09] MEDS: NORMAL SALINE 1000 ML 1,000 ML IV PRN ×2 (09:02→18:36)
[2017-04-09] MEDS: FENTANYL 75 MCG/HR PATCH.TD72 TD SCH (10:10)
[2017-04-09] MEDS: NICOTINE 21 MG/24 HR PATCH.TD24 TD SCH (10:11)
[2017-04-09] MEDS: FAMOTIDINE INJ/PF 20 MG/2 ML SDV IV SCH ×2 (10:11→21:09)
[2017-04-09] MEDS ORDERED: LIDOCAINE 5% (700 MG) TRANSDERMAL ADH..PATCH TP ONE ×2 (18:00)
[2017-04-09] MEDS: ENOXAPARIN SODIUM INJ 40 MG/0.4 ML DISP.SYRIN SUBCUT SCH (18:12)
[2017-04-09] MEDS: DIPHENHYDRAMINE HCL 50 MG/ML VIAL IV SCH (18:13)
[2017-04-10] MEDS: FENTANYL CITRATE INJ/PF 100 MCG/2 ML AMPUL IV PRN ×4 (00:49→20:11)
[2017-04-10] MEDS: AMPICILLIN SODIUM/SULBACTAM NA 3 GM in NORMAL SALINE 100 ML IV SCH ×4 (03:37→20:44)
[2017-04-10] MEDS: DIPHENHYDRAMINE HCL 50 MG/ML VIAL IV SCH ×4 (03:40→17:59)
[2017-04-10] MEDS: METHYLPREDNISOLONE INJ 125 MG/2 ML SDV IV SCH ×3 (05:22→22:03)
[2017-04-10] MEDS: CARISOPRODOL 350 MG TABLET PO SCH ×3 (05:23→22:00)
[2017-04-10 05:36] LABS: ARTERIAL BLOOD BASE EXCESS 0 mmol/L; ARTERIAL BLOOD O2 SATURATION 77.2 % (94-98)
[2017-04-10 05:37] LABS: ALANINE AMINOTRANSFERASE 100 U/L (9-52); ALKALINE PHOSPHATASE 73 U/L (38-126); ANION GAP 12 (5-19); ASPARTATE AMINO TRANSFERASE 133 U/L (14-36); BILIRUBIN,DIRECT 0.7 mg/dL (0.0-0.4); BILIRUBIN,TOTAL 1.1 mg/dL (0.2-1.3); BLOOD UREA NITROGEN 15 mg/dL (7-20); CALCIUM 8.4 mg/dL (8.4-10.2); CARBON DIOXIDE 24 mmol/L (22-30); CHLORIDE 109 mmol/L (98-107); CREATININE RESULT 0.67 mg/dL (0.52-1.25); GLUCOSE 117 mg/dL (75-110); POTASSIUM 3.9 mmol/L (3.6-5.0); TOTAL PROTEIN 7.7 g/dL (6.3-8.2)
[2017-04-10 06:45] LABS: HEMATOCRIT 35.7 % (36.0-47.0); HEMOGLOBIN 12.2 g/dL (12.0-15.5); HGB HCT DIFFERENCE 0.9; MEAN CORPUSCULAR HEMOGLOBIN 32.3 pg (27.0-33.4); MEAN CORPUSCULAR HGB CONC 34.2 g/dL (32.0-36.0); MEAN CORPUSCULAR VOLUME 95 fl (80-97); RED BLOOD COUNT 3.77 10^6/uL (3.72-5.28); RED CELL DISTRIBUTION WIDTH 13.1 % (11.5-14.0); WHITE BLOOD COUNT 17.2 10^3/uL (4.0-10.5)
[2017-04-10 07:14] LABS: BASOPHILS % (MANUAL) 0 % (0-2); EOSINOPHILS % (MANUAL) 0 % (0-6); LYMPHOCYTES % (MANUAL) 19 % (13-45); TOTAL CELLS COUNTED 100
[2017-04-10 07:15] LABS: POIKILOCYTOSIS SLIGHT; POLYCHROMASIA 1+; TEAR DROP CELLS SLIGHT; TOXIC VACUOLATION PRESENT
--- NOTE | 2017-04-10 08:23 | RADIOLOGY REPORT (SQ) ---
EXAM DESCRIPTION: CHEST SINGLE VIEW COMPLETED DATE/TIME: 04/10/2017 8:08 am REASON FOR STUDY: acute resp failure COMPARISON: 04/09/2017, 04/08/2017, 04/07/[address] chest 04/08/2017 EXAM PARAMETERS: NUMBER OF VIEWS: One view. TECHNIQUE: Single frontal radiographic view of the chest acquired. RADIATION DOSE: NA LIMITATIONS: Portable film, mild motion artifact, lordotic positioning FINDINGS: LUNGS AND PLEURA: Mild motion artifact. Persistent mild atelectasis in the left retrocard iac region. No pneumothorax. No pleural effusions. MEDIASTINUM AND HILAR STRUCTURES: No masses. Contour normal. Continued decrease in pneumomediastinu m compared to previous studies, small amount of air is seen at the thoracic inlet and lower neck. HEART AND VASCULAR STRUCTURES: Heart normal in size. Normal vasculature. BONES: No acute findings. HARDWARE: Tracheostomy tube tip in the upper trachea, unchanged. Lower cervical fusion hardware with neurostimulator electrodes over the cervical spine OTHER: No other significant finding. IMPRESSION: Continued improvement, with decrease in mediastinal and neck soft tissue air. Decrease in left retrocardiac consolidation compared to previous studies TECHNICAL DOCUMENTATION: JOB ID: [id number]
[2017-04-10] MEDS: NICOTINE 21 MG/24 HR PATCH.TD24 TD SCH (09:49)
[2017-04-10] MEDS: FAMOTIDINE INJ/PF 20 MG/2 ML SDV IV SCH ×2 (09:49→22:04)
[2017-04-10] MEDS ORDERED: LIDOCAINE 5% (700 MG) TRANSDERMAL ADH..PATCH TP SCH (10:00)
[2017-04-10] MEDS: NORMAL SALINE 1000 ML 1,000 ML IV PRN ×2 (13:16→22:10)
[2017-04-10] MEDS ORDERED: BISACODYL 10 MG SUPP.RECT PR ONE (16:00)
--- NOTE | 2017-04-10 16:52 | PROGRESS NOTE E ---
Progress Note NAME: JOCELINE GURROLA : 1965 AGE: 51Y DATE: 04/10/2017 ROOM: 322 The patient was transferred from the unit to the [facility] last night. She seems to be progressing quite well. She tolerated the NG tube feedings last night. Today on examination, her tongue has decreased in size though still somewhat swollen. Her trach tube is in good position without any evidence of infection. She is still on IV medications with an antibiotic and IV steroids. I had a long talk with the family as far as further care for the patient. The patient has been complaining of lower back pains and she feels that we are giving, which are the same medications she was getting at home, are not working and wants a strong medication. Unfortunately, I told her that our main concern right now is her angioedema with the trach but we will try to give her a little stronger pain medications for her back. When she goes to the pain management, hopefully they will increase and her pain medicine can be managed. At any rate, she will need 2 more days of NG tube feedings and by the time the swelling subsides, we can discontinue the NG tube and start feeding her p.o. We will also have the assistance of ENT as far as the care for the trach tube. DICTATING PHYSICIAN: ANJEL KELLEY M.D. [id number] PHY#: [id number] ID: [id number] JOB#: [id number] ACCT: [id number] cc:ANJEL KELLEY M.D. >
[2017-04-10] MEDS ORDERED: LIDOCAINE 5% (700 MG) TRANSDERMAL ADH..PATCH TP ONE (18:00)
--- NOTE | 2017-04-10 18:42 | PDOC PROGRESS REPORT ---
Subjective Progress Note for:: 04/09/17 Subjective:: stable Physical Exam Vital Signs: Temp Pulse Resp BP Pulse Ox 98.8 F 63 20 119/74 95 04/09/17 06:00 04/08/17 20:00 04/09/17 06:15 04/09/17 05:59 04/09/17 06:15 Intake & Output 04/08/17 04/09/17 04/10/17 06:59 06:59 06:59 Intake Total 3677 3137 Output Total 1045 1500 Balance 2632 1637 Weight 88 kg 90.1 kg General appearance: PRESENT: no acute distress, disheveled, well-developed Head exam: PRESENT: atraumatic, normocephalic Eye exam: PRESENT: conjunctiva pale Mouth exam: PRESENT: dry mucosa, neck supple Teeth exam: PRESENT: poor dentation Neck exam: PRESENT: tracheostomy Respiratory exam: PRESENT: decreased breath sounds, prolonged expiratory phas, rhonchi, symmetrical, unlabored Cardiovascular exam: PRESENT: RRR, +S1, +S2 Pulses: PRESENT: normal radial pulses GI/Abdominal exam: PRESENT: normal bowel sounds, soft. ABSENT: distended, guarding, mass, organolmegaly, rebound, tenderness Rectal exam: PRESENT: deferred Gentrourinary exam: PRESENT: urethral discharge Musculoskeletal exam: PRESENT: normal inspection Neurological exam: PRESENT: awake Skin exam: PRESENT: dry, warm Results Laboratory Results: 04/09/17 04:22 04/09/17 04:22 04/08/17 04/08/17 04/09/17 12:45 17:50 04:22 WBC 15.1 H RBC 3.23 L Hgb 10.8 L Hct 31.2 L MCV 97 MCH 33.6 H MCHC 34.7 RDW 13.2 Plt Count 289 Seg Neutrophils % 86.1 H Lymphocytes % 10.7 L Monocytes % 2.9 L Eosinophils % 0.0 Basophils % 0.3 Absolute Neutrophils 13.0 H Absolute Lymphocytes 1.6 Absolute Monocytes 0.4 Absolute Eosinophils 0.0 Absolute Basophils 0.0 Carbonic Acid 0.99 L HCO3/H2CO3 Ratio 18:1 ABG pH 7.37 ABG pCO2 33.0 L ABG pO2 64.7 L ABG HCO3 18.7 L ABG O2 Saturation 92.4 L ABG Base Excess -5.6 FiO2 24% Sodium Potassium Chloride Carbon Dioxide Anion Gap BUN Creatinine Est GFR ( Amer) Est GFR (Non-Af Amer) Glucose Calcium Magnesium Total Bilirubin AST ALT Alkaline Phosphatase Total Protein Albumin Urine Color YELLOW Urine Appearance CLEAR Urine pH 6.0 Ur Specific [place] 1.021 Urine Protein NEGATIVE Urine Glucose (UA) NEGATIVE Urine Ketones TRACE H Urine Blood NEGATIVE Urine Nitrite NEGATIVE Ur Leukocyte Esterase NEGATIVE Urine WBC (Auto) 0 Urine RBC (Auto) 6 04/09/17 04/09/17 04:22 05:30 WBC RBC Hgb Hct MCV MCH MCHC RDW Plt Count Seg Neutrophils % Lymphocytes % Monocytes % Eosinophils % Basophils % Absolute Neutrophils Absolute Lymphocytes Absolute Monocytes Absolute Eosinophils Absolute Basophils Carbonic Acid 0.83 L HCO3/H2CO3 Ratio 22:1 ABG pH 7.46 H ABG pCO2 27.5 L ABG pO2 62.5 L ABG HCO3 18.9 L ABG O2 Saturation 93.4 L ABG Base Excess -3.8 FiO2 40% Sodium 142.2 Potassium 4.1 Chloride 115 H Carbon Dioxide 19 L Anion Gap 8 BUN 13 Creatinine 0.61 Est GFR ( Amer) > 60 Est GFR (Non-Af Amer) > 60 Glucose 135 H Calcium 8.3 L Magnesium 1.8 Total Bilirubin 0.4 AST 27 ALT 39 Alkaline Phosphatase 62 Total Protein 5.7 L Albumin 2.9 L Urine Color Urine Appearance Urine pH Ur Specific [place] Urine Protein Urine Glucose (UA) Urine Ketones Urine Blood Urine Nitrite Ur Leukocyte Esterase Urine WBC (Auto) Urine RBC (Auto) 04/08/17 04:11 CK-MB (CK-2) 0.42 Impressions: Chest CT 04/08/17 00:00 IMPRESSION: Post emergent tracheostomy placement, with the tip of the tracheostomy tube in the upper trachea. There is mild hyperinflation of the balloon. Mediastinal air is present worrisome for membranous trachea injury. Findings discussed with the Surgical attending as above. The soft tissue air throughout the mediastinum and supraclavicular regions Bibasilar atelectasis are Soft Tissue Neck CT 04/08/17 00:00 IMPRESSION: Diffuse soft tissue air, would air along the dorsal aspect of the trachea in the upper mediastinum. Membranous trachea injury could not be excluded. Tracheostomy tube tip in the midtrachea Findings discussed with the Surgical attending, 1440 hours 04/08/2017. Soft Tissue Neck X-Ray 04/08/17 00:00 IMPRESSION: Extensive soft tissue air throughout the neck soft tissues, supraclavicular regions and upper mediastinum post emergency tracheostomy placement yesterday. By plain film, the tracheostomy tube tip is in the upper 3rd of the trachea, in good positioning Chest X-Ray 04/09/17 06:00 IMPRESSION: Slight increase in left lower lobe consolidation Decrease in mediastinal and supraclavicular air Tracheostomy and nasogastric tubes in good positioning. Assessment & Plan - Diagnosis (1) Acute respiratory failure Qualifiers: Respiratory failure complication: unspecified whether with hypoxia or hypercapnia Qualified Code(s): J96.00 - Acute respiratory failure, unspecified whether with hypoxia or hypercapnia Is this a current diagnosis for this admission?: No (2) Angio-edema Qualifiers: Encounter type: initial encounter Qualified Code(s): T78.3XXA - Angioneurotic edema, initial encounter Is this a current diagnosis for this admission?: Yes (3) Laryngeal edema Is this a current diagnosis for this admission?: Yes (4) Tobacco abuse Is this a current diagnosis for this admission?: Yes
[2017-04-10] MEDS: ENOXAPARIN SODIUM INJ 40 MG/0.4 ML DISP.SYRIN SUBCUT SCH (18:55)
[2017-04-11] MEDS: DIPHENHYDRAMINE HCL 50 MG/ML VIAL IV SCH ×4 (00:22→17:31)
[2017-04-11] MEDS: AMPICILLIN SODIUM/SULBACTAM NA 3 GM in NORMAL SALINE 100 ML IV SCH ×4 (03:00→20:37)
[2017-04-11] MEDS: CARISOPRODOL 350 MG TABLET PO SCH ×3 (06:05→22:04)
[2017-04-11] MEDS: METHYLPREDNISOLONE INJ 125 MG/2 ML SDV IV SCH (06:10)
[2017-04-11] MEDS: NICOTINE 21 MG/24 HR PATCH.TD24 TD SCH (09:35)
[2017-04-11] MEDS: FENTANYL 75 MCG/HR PATCH.TD72 TD SCH (09:35)
[2017-04-11] MEDS: FAMOTIDINE INJ/PF 20 MG/2 ML SDV IV SCH ×2 (09:35→21:51)
[2017-04-11] MEDS: NORMAL SALINE 1000 ML 1,000 ML IV PRN (11:26)
[2017-04-11] MEDS ORDERED: BISACODYL 10 MG SUPP.RECT PR PRN (11:43)
--- NOTE | 2017-04-11 12:22 | PROGRESS NOTE E ---
Progress Note NAME: JOCELINE GURROLA : 1965 AGE: 51Y DATE: 04/11/2017 ROOM: [facility] SUBJECTIVE: The patient is about 4 days post trach. She remains afebrile and without much pain. Her subcutaneous emphysema has subsided, as well as mediastinal emphysema. X-ray yesterday showed also decrease in consolidation along the left lower lobe area. She is still coughing and aspiration of the trach revealed thick, brownish secretion that is adherent to the suction catheter. It appears to be quite thick. PLAN: I discussed the case with the hospitalist, as far as medications are concerned, and she said the steroid can be stopped now since patient's angioedema appears to have subsided. As far as antibiotics are concerned, we will check with Pulmonary who started her on that, and we will check with Dr. Bob tomorrow. In the meantime, we will repeat the white count to see if it has come down. I have discussed the trach management with the ENT doctor last night and he said the trach can be removed within 3 days to just heal by itself. In the meantime, we will discontinue her Painting, continue the NG drainage another 24 hours, and hopefully we can discontinue the NG tube tomorrow and start her on p.o. diet. DICTATING PHYSICIAN: ANJEL KELLEY M.D. [id number] REMINGTONY#: [id number] ID: [id number] JOB#: [id number] ACCT: [id number] cc: >
[2017-04-11] MEDS: FENTANYL CITRATE INJ/PF 100 MCG/2 ML AMPUL IV PRN ×3 (12:41→21:55)
--- NOTE | 2017-04-11 12:47 | PROGRESS NOTE E ---
Progress Note NAME: JOCELINE GURROLA : 1965 AGE: 51Y DATE: 04/11/2017 ROOM: 322 SUBJECTIVE: The patient appears to be progressing very well. She practically does not have any more swollen tongue and I have discussed steroid management with the hospitalist, Dr. Brito, who said we can stop the steroids at this time. The nurse is still suctioning thick mucous from the trach. She has been coughing with some aspirating thick brownish secretions. She is afebrile. Her x-ray yesterday showed improvement of the infiltrate or consolidation in the left lower lobe area. As far as the trach is concerned, I discussed the situation with the ENT surgeon last night and he said the trach can be removed anytime within 3 days and the wound should heal by itself. PLAN: I will check her white count in the morning and hopefully it is down with stoppage of the steroids and discuss further antibiotic management with Pulmonary Care, Dr. Bob. We will also discontinue the Painting catheter this morning and we will discontinue the Ng tube tomorrow and see how she does with p.o. intake. DICTATING PHYSICIAN: ANJEL KELLEY M.D. [id number] PHY#: [id number] ID: [id number] JOB#: [id number] ACCT: [id number] cc: >
[2017-04-11] MEDS: ENOXAPARIN SODIUM INJ 40 MG/0.4 ML DISP.SYRIN SUBCUT SCH (20:38)
[2017-04-11] MEDS: AMITRIPTYLINE HCL 50 MG TABLET PO PRN (22:03)
[2017-04-12] MEDS: DIPHENHYDRAMINE HCL 50 MG/ML VIAL IV SCH ×4 (00:15→19:02)
[2017-04-12] MEDS: NORMAL SALINE 1000 ML 1,000 ML IV PRN ×2 (01:24→20:23)
[2017-04-12] MEDS: AMPICILLIN SODIUM/SULBACTAM NA 3 GM in NORMAL SALINE 100 ML IV SCH ×4 (03:38→20:25)
[2017-04-12] MEDS: FENTANYL CITRATE INJ/PF 100 MCG/2 ML AMPUL IV PRN ×3 (03:38→20:22)
[2017-04-12] MEDS: CARISOPRODOL 350 MG TABLET PO SCH ×3 (06:04→22:09)
[2017-04-12] MEDS: NICOTINE 21 MG/24 HR PATCH.TD24 TD SCH (09:40)
[2017-04-12] MEDS: FAMOTIDINE INJ/PF 20 MG/2 ML SDV IV SCH ×2 (09:40→22:09)
--- NOTE | 2017-04-12 10:43 | PDOC PROGRESS REPORT ---
Subjective Progress Note for:: 04/12/17 Subjective:: stable;w/o complaints Physical Exam Vital Signs: Temp Pulse Resp BP Pulse Ox 98.4 F 69 19 137/83 H 93 04/12/17 07:40 04/12/17 07:40 04/12/17 07:40 04/12/17 07:40 04/12/17 07:40 Intake & Output 04/11/17 04/12/17 04/13/17 06:59 06:59 06:59 Intake Total 3543 2698 Output Total 5300 1075 Balance -1757 1623 Weight 85.5 kg 84.6 kg General appearance: PRESENT: no acute distress, cooperative, well-developed Head exam: PRESENT: atraumatic, normocephalic Eye exam: PRESENT: conjunctiva pale, EOMI Mouth exam: PRESENT: moist, tongue midline Neck exam: PRESENT: tracheostomy Respiratory exam: PRESENT: decreased breath sounds, prolonged expiratory phas, rhonchi, symmetrical, unlabored Cardiovascular exam: PRESENT: RRR, +S1, +S2 Pulses: PRESENT: normal radial pulses GI/Abdominal exam: PRESENT: normal bowel sounds, soft. ABSENT: distended, guarding, mass, organolmegaly, rebound, tenderness Musculoskeletal exam: PRESENT: normal inspection Neurological exam: PRESENT: alert, awake Psychiatric exam: PRESENT: normal mood Skin exam: PRESENT: dry, warm Results Laboratory Results: 04/10/17 06:34 04/10/17 05:06 04/08/17 04:11 CK-MB (CK-2) 0.42 Impressions: Chest CT 04/08/17 00:00 IMPRESSION: Post emergent tracheostomy placement, with the tip of the tracheostomy tube in the upper trachea. There is mild hyperinflation of the balloon. Mediastinal air is present worrisome for membranous trachea injury. Findings discussed with the Surgical attending as above. The soft tissue air throughout the mediastinum and supraclavicular regions Bibasilar atelectasis are Soft Tissue Neck CT 04/08/17 00:00 IMPRESSION: Diffuse soft tissue air, would air along the dorsal aspect of the trachea in the upper mediastinum. Membranous trachea injury could not be excluded. Tracheostomy tube tip in the midtrachea Findings discussed with the Surgical attending, 1440 hours 04/08/2017. Soft Tissue Neck X-Ray 04/08/17 00:00 IMPRESSION: Extensive soft tissue air throughout the neck soft tissues, supraclavicular regions and upper mediastinum post emergency tracheostomy placement yesterday. By plain film, the tracheostomy tube tip is in the upper 3rd of the trachea, in good positioning Chest X-Ray 04/10/17 06:00 IMPRESSION: Continued improvement, with decrease in mediastinal and neck soft tissue air. Decrease in left retrocardiac consolidation compared to previous studies Assessment & Plan - Diagnosis (1) Acute respiratory failure Qualifiers: Respiratory failure complication: unspecified whether with hypoxia or hypercapnia Qualified Code(s): J96.00 - Acute respiratory failure, unspecified whether with hypoxia or hypercapnia Is this a current diagnosis for this admission?: No (2) Angio-edema Qualifiers: Encounter type: initial encounter Qualified Code(s): T78.3XXA - Angioneurotic edema, initial encounter Is this a current diagnosis for this admission?: YesPlan: no distress subcutaneous emphysema resolved (3) Laryngeal edema Is this a current diagnosis for this admission?: Yes (4) Tobacco abuse Is this a current diagnosis for this admission?: Yes
--- NOTE | 2017-04-12 11:27 | RADIOLOGY REPORT (SQ) ---
EXAM DESCRIPTION: CHEST SINGLE VIEW COMPLETED DATE/TIME: 04/12/2017 11:04 am REASON FOR STUDY: angioedema COMPARISON: 04/10/2017. EXAM PARAMETERS: NUMBER OF VIEWS: One view. TECHNIQUE: Single frontal radiographic view of the chest acquired. RADIATION DOSE: NA LIMITATIONS: None. FINDINGS: LUNGS AND PLEURA: Generally improved aeration. Faint density in the left lung base with s mall pleural effusion. MEDIASTINUM AND HILAR STRUCTURES: No masses. Contour normal. HEART AND VASCULAR STRUCTURES: Heart upper limits of normal in size. Normal vasculature. BONES: No acute findings. HARDWARE: Stable tracheostomy tube and nasogastric tube. Stimulator device in the neck. Hardware in the cervical spine. OTHER: No other significant finding. IMPRESSION: GENERALLY IMPROVED APPEARANCE. MILD ATELECTASIS IN THE LEFT BASE WITH SMALL PLEURAL EFF USION. TECHNICAL DOCUMENTATION: JOB ID: [id number]
[2017-04-12] MEDS: ENOXAPARIN SODIUM INJ 40 MG/0.4 ML DISP.SYRIN SUBCUT SCH (19:02)
[2017-04-12] MEDS: AMITRIPTYLINE HCL 50 MG TABLET PO PRN (22:09)
[2017-04-13] MEDS: DIPHENHYDRAMINE HCL 50 MG/ML VIAL IV SCH ×4 (00:59→18:15)
[2017-04-13] MEDS: AMPICILLIN SODIUM/SULBACTAM NA 3 GM in NORMAL SALINE 100 ML IV SCH ×4 (03:57→21:57)
[2017-04-13 06:02] LABS: ABSOLUTE EOSINOPHILS # (AUTO) 0.4 10^3/uL (0.0-0.6); ABSOLUTE MONOCYTES (AUTO) 0.6 10^3/uL (0.1-1.4); ABSOLUTE NEUT (AUTO) 4.8 10^3/uL (1.7-8.2); BASOPHILS % (AUTO) 0.1 % (0-2); EOSINOPHILS % (AUTO) 3.6 % (0-6); HEMATOCRIT 35.4 % (36.0-47.0); HGB HCT DIFFERENCE 0.6; LYMPHOCYTES % (AUTO) 46.4 % (13-45); MEAN CORPUSCULAR HEMOGLOBIN 32.8 pg (27.0-33.4); MEAN CORPUSCULAR HGB CONC 33.9 g/dL (32.0-36.0); MEAN CORPUSCULAR VOLUME 97 fl (80-97); MONOCYTES % (AUTO) 5.4 % (3-13); RED BLOOD COUNT 3.66 10^6/uL (3.72-5.28); RED CELL DISTRIBUTION WIDTH 13.2 % (11.5-14.0); SEGMENTED NEUTROPHILS % (AUTO) 44.5 % (42-78); WHITE BLOOD COUNT 10.8 10^3/uL (4.0-10.5)
[2017-04-13 06:19] LABS: ANION GAP 10 (5-19); BLOOD UREA NITROGEN 16 mg/dL (7-20); CALCIUM 8.2 mg/dL (8.4-10.2); CARBON DIOXIDE 29 mmol/L (22-30); CHLORIDE 102 mmol/L (98-107); CREATININE RESULT 0.66 mg/dL (0.52-1.25); GLUCOSE 97 mg/dL (75-110); SODIUM 140.9 mmol/L (137-145)
[2017-04-13] MEDS: CARISOPRODOL 350 MG TABLET PO SCH ×3 (06:43→21:56)
[2017-04-13] MEDS: POTASSIUM CHLORIDE 20 MEQ/50 ML RTU IV SCH ×3 (08:25→12:59)
[2017-04-13] MEDS: FENTANYL 75 MCG/HR PATCH.TD72 TD SCH (10:21)
[2017-04-13] MEDS: NICOTINE 21 MG/24 HR PATCH.TD24 TD SCH (10:21)
[2017-04-13] MEDS: FAMOTIDINE INJ/PF 20 MG/2 ML SDV IV SCH ×2 (10:22→21:57)
--- NOTE | 2017-04-13 10:50 | PDOC PROGRESS REPORT ---
Subjective Progress Note for:: 04/13/17 Subjective:: Anxious to have trach tube removed Physical Exam Vital Signs: Temp Pulse Resp BP Pulse Ox 98.6 F 71 18 119/80 95 04/13/17 07:26 04/13/17 07:26 04/13/17 07:26 04/13/17 07:26 04/13/17 10:10 Intake & Output 04/12/17 04/13/17 04/14/17 06:59 06:59 06:59 Intake Total 2698 3315 Output Total 1075 700 Balance 1623 2615 Weight 84.6 kg 85 kg General appearance: PRESENT: no acute distress, cooperative, well-developed, well-nourished Head exam: PRESENT: atraumatic, normocephalic Eye exam: PRESENT: conjunctiva pale, EOMI Mouth exam: PRESENT: moist, neck supple Neck exam: PRESENT: tracheostomy. ABSENT: carotid bruit, JVD, lymphadenopathy, thyromegaly, tracheal deviation Respiratory exam: PRESENT: decreased breath sounds, prolonged expiratory phas, rhonchi, unlabored Cardiovascular exam: PRESENT: RRR, +S1, +S2 Pulses: PRESENT: normal radial pulses GI/Abdominal exam: PRESENT: normal bowel sounds, soft. ABSENT: distended, guarding, mass, organolmegaly, rebound, tenderness Rectal exam: PRESENT: deferred Musculoskeletal exam: PRESENT: normal inspection Neurological exam: PRESENT: alert, awake Psychiatric exam: PRESENT: normal mood Skin exam: PRESENT: dry, warm Results Laboratory Results: 04/13/17 05:07 04/13/17 05:07 04/13/17 04/13/17 05:07 05:07 WBC 10.8 H RBC 3.66 L Hgb 12.0 Hct 35.4 L MCV 97 MCH 32.8 MCHC 33.9 RDW 13.2 Plt Count 256 Seg Neutrophils % 44.5 Lymphocytes % 46.4 H Monocytes % 5.4 Eosinophils % 3.6 Basophils % 0.1 Absolute Neutrophils 4.8 Absolute Lymphocytes 5.0 H Absolute Monocytes 0.6 Absolute Eosinophils 0.4 Absolute Basophils 0.0 Sodium 140.9 Potassium 3.0 L* Chloride 102 Carbon Dioxide 29 Anion Gap 10 BUN 16 Creatinine 0.66 Est GFR ( Amer) > 60 Est GFR (Non-Af Amer) > 60 Glucose 97 Calcium 8.2 L 04/08/17 04:11 CK-MB (CK-2) 0.42 Impressions: Chest CT 04/08/17 00:00 IMPRESSION: Post emergent tracheostomy placement, with the tip of the tracheostomy tube in the upper trachea. There is mild hyperinflation of the balloon. Mediastinal air is present worrisome for membranous trachea injury. Findings discussed with the Surgical attending as above. The soft tissue air throughout the mediastinum and supraclavicular regions Bibasilar atelectasis are Soft Tissue Neck CT 04/08/17 00:00 IMPRESSION: Diffuse soft tissue air, would air along the dorsal aspect of the trachea in the upper mediastinum. Membranous trachea injury could not be excluded. Tracheostomy tube tip in the midtrachea Findings discussed with the Surgical attending, 1440 hours 04/08/2017. Soft Tissue Neck X-Ray 04/08/17 00:00 IMPRESSION: Extensive soft tissue air throughout the neck soft tissues, supraclavicular regions and upper mediastinum post emergency tracheostomy placement yesterday. By plain film, the tracheostomy tube tip is in the upper 3rd of the trachea, in good positioning Chest X-Ray 04/12/17 00:00 IMPRESSION: GENERALLY IMPROVED APPEARANCE. MILD ATELECTASIS IN THE LEFT BASE WITH SMALL PLEURAL EFFUSION. Assessment & Plan - Diagnosis (1) Acute respiratory failure Qualifiers: Respiratory failure complication: unspecified whether with hypoxia or hypercapnia Qualified Code(s): J96.00 - Acute respiratory failure, unspecified whether with hypoxia or hypercapnia Is this a current diagnosis for this admission?: No (2) Angio-edema Qualifiers: Encounter type: initial encounter Qualified Code(s): T78.3XXA - Angioneurotic edema, initial encounter Is this a current diagnosis for this admission?: No (3) Laryngeal edema Is this a current diagnosis for this admission?: No (4) Tobacco abuse Is this a current diagnosis for this admission?: Yes - Plan Summary Plan Summary: Discussed with patient and his surgeon will proceed with removal of tracheostomy tube
[2017-04-13] MEDS: NORMAL SALINE 1000 ML 1,000 ML IV PRN (11:56)
[2017-04-13] MEDS: ENOXAPARIN SODIUM INJ 40 MG/0.4 ML DISP.SYRIN SUBCUT SCH (18:15)
[2017-04-13] MEDS: FENTANYL CITRATE INJ/PF 100 MCG/2 ML AMPUL IV PRN (20:34)
[2017-04-13] MEDS: AMITRIPTYLINE HCL 50 MG TABLET PO PRN (22:08)
--- NOTE | 2017-04-14 00:17 | PROGRESS NOTE E ---
Progress Note NAME: JOCELINE GURROLA : 1965 AGE: 51Y DATE: 04/13/2017 ROOM: 322 SUBJECTIVE: Patient was seen by Dr. Garcia this morning, and agreed that the trach tube can be removed. The trach tube was then removed, and a Xeroform gauze placed over the defect and dressed with sterile gauze. Patient advised to put pressure on the area of the defect when she talks. I also advised the nurse to change the dressing every 12 hours. The wound itself looks good and no evidence of infection. She is also going to have regular p.o. intake. PLAN: Continue with IV antibiotics, and possibly discharge tomorrow if she remains stable. DICTATING PHYSICIAN: ANJEL KELLEY M.D. [id number] PHY#: [id number] ID: [id number] JOB#: [id number] ACCT: [id number] cc: >
[2017-04-14] MEDS: DIPHENHYDRAMINE HCL 50 MG/ML VIAL IV SCH ×3 (00:23→11:36)
[2017-04-14] MEDS: NORMAL SALINE 1000 ML 1,000 ML IV PRN (00:33)
[2017-04-14] MEDS: AMPICILLIN SODIUM/SULBACTAM NA 3 GM in NORMAL SALINE 100 ML IV SCH ×2 (03:37→08:33)
[2017-04-14] MEDS: CARISOPRODOL 350 MG TABLET PO SCH (05:57)
[2017-04-14] MEDS ORDERED: OXYCODONE-ACETAMINOPHEN 5-325 MG TABLET PO PRN (09:06)
[2017-04-14] MEDS: FAMOTIDINE INJ/PF 20 MG/2 ML SDV IV SCH (09:40)
[2017-04-14] MEDS: NICOTINE 21 MG/24 HR PATCH.TD24 TD SCH (09:40)
--- NOTE | 2017-04-14 10:57 | PDOC PROGRESS REPORT ---
Subjective Progress Note for:: 04/14/17 Subjective:: Anxious to Go home Physical Exam Vital Signs: Temp Pulse Resp BP Pulse Ox 98.4 F 87 19 129/82 H 91 L 04/14/17 07:31 04/14/17 07:31 04/14/17 07:31 04/14/17 07:31 04/14/17 07:31 Intake & Output 04/13/17 04/14/17 04/15/17 06:59 06:59 06:59 Intake Total 3315 2718 Output Total 700 4150 Balance 2615 -1432 Weight 85 kg 84.4 kg General appearance: PRESENT: no acute distress, cooperative, disheveled, well- developed, well-nourished Head exam: PRESENT: atraumatic, normocephalic Eye exam: PRESENT: conjunctiva pale, EOMI Mouth exam: PRESENT: moist, neck supple, tongue midline Neck exam: PRESENT: tracheostomy - Tube has been removed site appears to be clean and without discharge. ABSENT: carotid bruit, JVD, lymphadenopathy, thyromegaly Respiratory exam: PRESENT: decreased breath sounds, prolonged expiratory phas, rhonchi, symmetrical, unlabored Cardiovascular exam: PRESENT: RRR, +S1, +S2 Pulses: PRESENT: normal radial pulses GI/Abdominal exam: PRESENT: normal bowel sounds, soft. ABSENT: distended, guarding, mass, organolmegaly, rebound, tenderness Rectal exam: PRESENT: deferred Musculoskeletal exam: PRESENT: normal inspection Neurological exam: PRESENT: alert, awake Psychiatric exam: PRESENT: normal mood Skin exam: PRESENT: dry, warm Results Laboratory Results: 04/13/17 05:07 04/13/17 05:07 04/08/17 04:11 CK-MB (CK-2) 0.42 Impressions: Chest CT 04/08/17 00:00 IMPRESSION: Post emergent tracheostomy placement, with the tip of the tracheostomy tube in the upper trachea. There is mild hyperinflation of the balloon. Mediastinal air is present worrisome for membranous trachea injury. Findings discussed with the Surgical attending as above. The soft tissue air throughout the mediastinum and supraclavicular regions Bibasilar atelectasis are Soft Tissue Neck CT 04/08/17 00:00 IMPRESSION: Diffuse soft tissue air, would air along the dorsal aspect of the trachea in the upper mediastinum. Membranous trachea injury could not be excluded. Tracheostomy tube tip in the midtrachea Findings discussed with the Surgical attending, 1440 hours 04/08/2017. Soft Tissue Neck X-Ray 04/08/17 00:00 IMPRESSION: Extensive soft tissue air throughout the neck soft tissues, supraclavicular regions and upper mediastinum post emergency tracheostomy placement yesterday. By plain film, the tracheostomy tube tip is in the upper 3rd of the trachea, in good positioning Chest X-Ray 04/12/17 00:00 IMPRESSION: GENERALLY IMPROVED APPEARANCE. MILD ATELECTASIS IN THE LEFT BASE WITH SMALL PLEURAL EFFUSION. Assessment & Plan - Diagnosis (1) Acute respiratory failure Qualifiers: Respiratory failure complication: unspecified whether with hypoxia or hypercapnia Qualified Code(s): J96.00 - Acute respiratory failure, unspecified whether with hypoxia or hypercapnia Is this a current diagnosis for this admission?: No (2) Angio-edema Qualifiers: Encounter type: initial encounter Qualified Code(s): T78.3XXA - Angioneurotic edema, initial encounter Is this a current diagnosis for this admission?: No (3) Laryngeal edema Is this a current diagnosis for this admission?: No (4) Tobacco abuse Is this a current diagnosis for this admission?: Yes
--- NOTE | 2017-04-14 11:33 | DISCHARGE SUMMARY E ---
Discharge Summary NAME: JOCELINE GURROLA : 1965 AGE: 51Y ADMITTED: 04/07/2017 DISCHARGED: 04/14/2017 FINAL DIAGNOSES: 1. Angioedema with laryngeal edema. 2. Chronic back pain. 3. Hypertension. HOSPITAL COURSE: A 51-year-old female came into the ED with hoarseness and shortness of breath. An attempt to do an endotracheal intubation was not done because of laryngeal edema. Therefore, an emergency tracheostomy was done on 04/07/[address] Johnson. Patient transferred to the intensive care unit and Hospitalist gave meds for angioedema and also followed by Power Plant Operations Manager for the trach and vent management. Patient also developed an infiltrate in the left lower lung field and continued on IV antibiotics. She was then started on NG tube feeding and finally on 04/13/17, the NG tube was removed as well as the trach tube and patient then put on p.o. diet. On 04/14/17, patient tolerated regular diet and the trach tube site noted to be closing up without any evidence of infection. Patient to be discharged on p.o. Levaquin for the next 3 days and will be followed in the surgical clinic on 04/16/17. She is allowed to have a regular diet and advised no lifting more than 15 pounds for the next week. She is to continue all her pain medications for her pain management of her lower back. DICTATING PHYSICIAN: ANJEL JOHNSON M.D. [id number] PHY#: [id number] ID: [id number] JOB#: [id number] ACCT: [id number] cc:ANJEL JOHNSON M.D., E. R. >
[2017-04-14 12:04] VITALS: BP 123/76
== END 2017-04-14 14:33 | disposition home or self-care (01) | DRG 4 ==
LOC: ER 02:55 → UNDOADMIN 06:13 → EH 06:13 → ICU 07:40 → 3W 04-09 23:46
PROVIDERS: ADMIT Surgery; ATTEND Surgery
PROC: 30233L1 Transfusion of Nonautologous Fresh Plasma into Peripheral Vein, Percutaneous Approach (ICD-10-PCS; 2017-04-07)
PROC: 5A1945Z Respiratory Ventilation, 24-96 Consecutive Hours (ICD-10-PCS; 2017-04-07)
PROC: 0B110F4 Bypass Trachea to Cutaneous with Tracheostomy Device, Open Approach (ICD-10-PCS; principal; 2017-04-07 06:15)
PROC: 0DH67UZ Insertion of Feeding Device into Stomach, Via Natural or Artificial Opening (ICD-10-PCS; 2017-04-09)
PROC: 3E0G76Z Introduction of Nutritional Substance into Upper GI, Via Natural or Artificial Opening (ICD-10-PCS; 2017-04-09)
DX: T78.3XXA Angioneurotic edema, initial encounter (principal); J96.00 Acute respiratory failure, unspecified whether with hypoxia or hypercapnia; G89.4 Chronic pain syndrome; M54.9 Dorsalgia, unspecified; I10 Essential (primary) hypertension; F17.210 Nicotine dependence, cigarettes, uncomplicated; Z78.1 Physical restraint status; Z79.899 Other long term (current) drug therapy; Z88.8 Allergy status to other drugs, medicaments and biological substances; Z82.3 Family history of stroke; Z80.9 Family history of malignant neoplasm, unspecified; Z82.49 Family history of ischemic heart disease and other diseases of the circulatory system; Z79.891 Long term (current) use of opiate analgesic
CPT/HCPCS: 00320; 36415; 36430; 70360; 70490; 71010; 71250; 80048; 80053; 81001; 81025; 82553; 82803; 82962; 83735; 84439; 84443; 85025; 85027; 86850; 86900; 86901; 94002; 94003; 96372; 96374; 96375; 99285; A9270-GY; G8978-GP; G8979-GP; J0171; J0295; J0330; J0690; J1200; J1650; J2060; J2250; J2405; J2704; J2930; J3010; J3480; J3490; J7030; P9017; S0028

== ENCOUNTER 2019-04-19 07:48 | Emergency (ER) | payer MEDICARE ==
--- NOTE | 2019-04-19 09:13 | ER Document Report ---
ED Cardiac - General Chief Complaint: Chest Pain Stated Complaint: CHEST PRESSURE Time Seen by Provider: 04/19/19 09:11 Primary Care Provider: CHRISTINE BUENO MD [Primary Care Provider] - Follow up as needed Mode of Arrival: Ambulatory Information source: Patient Notes: Patient is a 53-year-old female presenting to the emergency department with chief complaint of chest pain and shortness of breath. She reports this is been going on for several days. She reports pain is located under her bilateral breasts and is worse when she lies down. She denies any recent surgeries, denies history of smoking and denies any history of DVT or pulmonary embolism. She does report that she has fusions to her neck and a implanted neurostimulator. She denies any nausea, vomiting, diarrhea or diaphoresis. TRAVEL OUTSIDE OF THE [place] IN LAST 30 DAYS: No - Related Data Allergies/Adverse Reactions: amlodipine [From Health: [employer]] Allergy (Severe, Verified 04/19/19 08:03) Angioneurotic Edema crab Allergy (Verified 04/19/19 08:03) morphine Adverse Reaction (Verified 04/19/19 11:48) passes out Past Medical History - General Information source: Patient - Social History Smoking Status: Never Smoker Frequency of alcohol use: None Drug Abuse: None Family History: Reviewed & Not Pertinent - Past Medical History Cardiac Medical History: Reports: Hx Hypertension Renal/ Medical History: Denies: Hx Peritoneal Dialysis Psychiatric Medical History: Denies: Hx Depression Past Surgical History: Reports: Hx Orthopedic Surgery - Possibly spinal surgery/fusion, Other - Vagal nerve stimulator Review of Systems - Review of Systems Constitutional: No symptoms reported EENT: No symptoms reported Cardiovascular: Chest pain, Orthopnea Respiratory: Short of breath Gastrointestinal: No symptoms reported Genitourinary: No symptoms reported Female Genitourinary: No symptoms reported Musculoskeletal: No symptoms reported Skin: No symptoms reported Hematologic/Lymphatic: No symptoms reported Neurological/Psychological: No symptoms reported Physical Exam - Vital signs Vitals: Temp Pulse Resp BP Pulse Ox 98 F 90 16 127/95 H 98 04/19/19 08:02 04/19/19 08:02 04/19/19 08:02 04/19/19 08:02 04/19/19 08:02 - Notes Notes: PHYSICAL EXAMINATION: GENERAL: Well-appearing, well-nourished and in no acute distress. HEAD: Atraumatic, normocephalic. EYES: Pupils equal round and reactive to light, extraocular movements intact, conjunctiva are normal. ENT: Nares patent, oropharynx clear without exudates. Moist mucous membranes. NECK: Normal range of motion, supple without lymphadenopathy LUNGS: Breath sounds clear to auscultation bilaterally and equal. No wheezes rales or rhonchi. HEART: Regular rate and rhythm without murmurs ABDOMEN: Soft, nontender, nondistended abdomen. No guarding, no rebound. No masses appreciated. Female : deferred Musculoskeletal: Normal range of motion, no pitting or edema. No cyanosis. NEUROLOGICAL: Cranial nerves grossly intact. Normal speech, normal gait. Normal sensory, motor exams PSYCH: Normal mood, normal affect. SKIN: Warm, Dry, normal turgor, no rashes or lesions noted. Course - Re-evaluation Re-evalutation: Laboratory 04/19/19 04/19/19 04/19/19 09:59 09:59 09:59 WBC 4.7 RBC 4.98 Hgb 15.8 H Hct 47.0 MCV 94 MCH 31.7 MCHC 33.6 RDW 12.8 Plt Count 365 Seg Neutrophils % 58.1 Lymphocytes % 36.2 Monocytes % 3.9 Eosinophils % 1.3 Basophils % 0.5 Absolute Neutrophils 2.7 Absolute Lymphocytes 1.7 Absolute Monocytes 0.2 Absolute Eosinophils 0.1 Absolute Basophils 0.0 Sodium 142.5 Potassium 3.4 L Chloride 95 L Carbon Dioxide 32 H Anion Gap 16 BUN 27 H Creatinine 0.88 Est GFR ( Amer) > 60 Est GFR (Non-Af Amer) > 60 Glucose 105 Calcium 11.1 H Total Bilirubin 0.6 Direct Bilirubin 0.4 Neonat Total Bilirubin Not Reportable Neonat Direct Bilirubin Not Reportable Neonat Indirect Bili Not Reportable AST 35 ALT 42 Alkaline Phosphatase 87 Troponin I < 0.012 Total Protein 9.6 H Albumin 5.7 H Lipase 45.2 Chest X-Ray 04/19/19 09:12 IMPRESSION: Right basilar pleural thickening/tenting without other evidence of acute cardiopulmonary process. Abdomen Ultrasound 04/19/19 09:43 IMPRESSION: NORMAL RIGHT UPPER QUADRANT ULTRASOUND. Chest CT 04/19/19 12:15 IMPRESSION: 1. No evidence of acute intrathoracic process. 2. 3.4 cm left thyroid lobe nodule, increased from prior. Recommend nonemergent ultrasound for further evaluation if not previously performed. Work-up today was unremarkable. Patient has a heart score of 1. Low suspicion for ACS. Troponin was negative and pain has been ongoing for several days. I did discuss the incidental finding of the thyroid nodule. Patient will follow-u p with this with her primary care provider. - Vital Signs Vital signs: Temp Pulse Resp BP Pulse Ox 98 F 90 15 117/80 98 04/19/19 08:02 04/19/19 08:02 04/19/19 12:01 04/19/19 12:01 04/19/19 12:01 - Laboratory Result Diagrams: 04/19/19 09:59 04/19/19 09:59 Laboratory results interpreted by me: 04/19/19 04/19/19 09:59 09:59 Hgb 15.8 H Potassium 3.4 L Chloride 95 L Carbon Dioxide 32 H BUN 27 H Calcium 11.1 H Total Protein 9.6 H Albumin 5.7 H - EKG Interpretation by Me EKG shows normal: Sinus rhythm Rate: Normal Rhythm: NSR When compared to previous EKG there are: No significant change Discharge - Discharge Clinical Impression: Thyroid nodule, Shortness of breath Condition: Stable Disposition: HOME, SELF-CARE Additional Instructions: Please follow-up with your primary care provider, you need to have an ultrasound done of your thyroid to evaluate the thyroid nodule that was noted on the CAT scan. All of your work-up today was unremarkable other than the thyroid nodule. I could not find a good explanation for the shortness of breath or chest pressu re that you were having. Again please follow-up with your primary, let them know that you had a negative cardiac work-up. Forms: Return to Work Referrals: CHRISTINE BUENO MD [Primary Care Provider] - Follow up as needed
--- NOTE | 2019-04-19 09:36 | RADIOLOGY REPORT (SQ) ---
EXAM DESCRIPTION: CHEST 2 VIEWS COMPLETED DATE/TIME: 04/19/2019 9:22 am REASON FOR STUDY: chest pressure COMPARISON: 04/12/2017 EXAM PARAMETERS: NUMBER OF VIEWS: two views TECHNIQUE: Digital Frontal and Lateral radiographic views of the chest acquired. RADIATION DOSE: NA LIMITATIONS: none FINDINGS: LUNGS AND PLEURA: Right basilar pleural tenting. No large effusion. No focal consolidati on. No pneumothorax. MEDIASTINUM AND HILAR STRUCTURES: No masses or contour abnormalities. HEART AND VASCULAR STRUCTURES: Heart normal size. No evidence for failure. BONES: No acute findings. HARDWARE: Partially visualized cervical fusion hardware. Stimulator leads overlie left chest and nec k. OTHER: No other significant finding. IMPRESSION: Right basilar pleural thickening/tenting without other evidence of acute cardiopulmonary process. TECHNICAL DOCUMENTATION: JOB ID: [id number] [employer]- All Rights Reserved Reading location - IP/workstation name: [email or web address]
[2019-04-19 10:19] LABS: ABSOLUTE EOSINOPHILS # (AUTO) 0.1 10^3/uL (0.0-0.6); ABSOLUTE LYMPHOCYTES (AUTO) 1.7 10^3/uL (0.5-4.7); ABSOLUTE MONOCYTES (AUTO) 0.2 10^3/uL (0.1-1.4); ABSOLUTE NEUT (AUTO) 2.7 10^3/uL (1.7-8.2); BASOPHILS % (AUTO) 0.5 % (0-2); EOSINOPHILS % (AUTO) 1.3 % (0-6); HEMOGLOBIN 15.8 g/dL (12.0-15.5); LYMPHOCYTES % (AUTO) 36.2 % (13-45); MEAN CORPUSCULAR HEMOGLOBIN 31.7 pg (27.0-33.4); MEAN CORPUSCULAR HGB CONC 33.6 g/dL (32.0-36.0); MEAN CORPUSCULAR VOLUME 94 fl (80-97); MONOCYTES % (AUTO) 3.9 % (3-13); PLATELET COUNT 365 10^3/uL (150-450); RED BLOOD COUNT 4.98 10^6/uL (3.72-5.28); RED CELL DISTRIBUTION WIDTH 12.8 % (11.5-14.0); SEGMENTED NEUTROPHILS % (AUTO) 58.1 % (42-78); TOTAL CELLS COUNTED % (AUTO) 100 %; WHITE BLOOD COUNT 4.7 10^3/uL (4.0-10.5)
[2019-04-19 10:45] LABS: ALBUMIN 5.7 g/dL (3.5-5.0); ALKALINE PHOSPHATASE 87 U/L (38-126); ANION GAP 16 (5-19); ASPARTATE AMINO TRANSFERASE 35 U/L (14-36); BILIRUBIN,DIRECT 0.4 mg/dL (0.0-0.4); BILIRUBIN,TOTAL 0.6 mg/dL (0.2-1.3); BLOOD UREA NITROGEN 27 mg/dL (7-20); CALCIUM 11.1 mg/dL (8.4-10.2); CARBON DIOXIDE 32 mmol/L (22-30); CHLORIDE 95 mmol/L (98-107); GLUCOSE 105 mg/dL (75-110); POTASSIUM 3.4 mmol/L (3.6-5.0); TOTAL PROTEIN 9.6 g/dL (6.3-8.2)
[2019-04-19] MEDS ORDERED: MORPHINE SULFATE 10 MG/ML INJ IV ONE (11:10)
[2019-04-19] MEDS ORDERED: FENTANYL CITRATE INJ/PF 100 MCG/2 ML AMPUL IV ONE (11:55)
--- NOTE | 2019-04-19 11:56 | RADIOLOGY REPORT (SQ) ---
EXAM DESCRIPTION: U/S ABDOMEN LIMITED W/O DOP COMPLETED DATE/TIME: 04/19/2019 11:18 am REASON FOR STUDY: upper abd pain/pressure COMPARISON: None. TECHNIQUE: Dynamic and static grayscale images acquired of the abdomen and recorded on PACS. Additio kamran selected color Doppler and spectral images recorded. LIMITATIONS: None. FINDINGS: PANCREAS: No masses. Visualized pancreatic duct normal caliber. LIVER: No masses. Echotexture normal. LIVER VASCULATURE: Normal directional flow of the main portal vein and hepatic veins. GALLBLADDER: No stones. Normal wall thickness. No pericholecystic fluid. ULTRASOUND-DETECTED VELASQUEZ'S SIGN: Negative. INTRAHEPATIC DUCTS AND COMMON DUCT: CBD and intrahepatic ducts normal caliber. No filling defects. INFERIOR VENA CAVA: Normal flow. AORTA: No aneurysm. RIGHT KIDNEY: Normal size. Normal echogenicity. No solid or suspicious masses. No hydronephrosis. No calcifications. PERITONEAL AND RIGHT PLEURAL SPACE: No ascites or effusions. OTHER: No other significant findings. IMPRESSION: NORMAL RIGHT UPPER QUADRANT ULTRASOUND. TECHNICAL DOCUMENTATION: JOB ID: [id number] [employer]- All Rights Reserved Reading location - IP/workstation name: [email or web address]
[2019-04-19 12:52] VITALS: BP 117/80
--- NOTE | 2019-04-19 13:23 | RADIOLOGY REPORT (SQ) ---
EXAM DESCRIPTION: CT CHEST WITH COMPLETED DATE/TIME: 04/19/2019 1:09 pm REASON FOR STUDY: chest pain, sob COMPARISON: 04/08/17 TECHNIQUE: CT scan of the chest performed using helical scanning technique with dynamic intravenous contrast injection. Images reviewed with lung, soft tissue and bone windows. Reconstructed coronal and sagittal MPR and MIP images reviewed. All images stored on PACS. All CT scanners at this facility use dose modulation, iterative reconstruction, and/or weight based d osing when appropriate to reduce radiation dose to as low as reasonably achievable (ALARA). [facility]: Dose Right [facility]: CareDose [facility]: Dose Right [facility]: Teradose 4D [facility]: Efficas CONTRAST TYPE AND DOSE: contrast/concentration: Isovue 350.00 mg/ml; Total Contrast Delivered: 80.0 ml; Total Saline Delivered: 53.9 ml RENAL FUNCTION: Creatinine 0.88 RADIATION DOSE: . LIMITATIONS: None. FINDINGS: LUNGS AND PLEURA: No opacities, nodules, masses. No pneumothorax. No effusions. HILAR AND MEDIASTINAL STRUCTURES: No identified masses or abnormal nodes. HEART AND VASCULAR STRUCTURES: No aneurysm or dissection. No central pulmonary emboli. No pericardi al effusion. HARDWARE: None in the chest. UPPER ABDOMEN: No significant findings. Limited exam. THYROID AND OTHER SOFT TISSUES: Multiple hypodense thyroid nodules on the left, largest measuring 3.4 cm, previously 2.7 cm. BONES: No significant finding. OTHER: No other significant finding. IMPRESSION: 1. No evidence of acute intrathoracic process. 2. 3.4 cm left thyroid lobe nodule, increased from prior. Recommend nonemergent ultrasound for furt her evaluation if not previously performed. TECHNICAL DOCUMENTATION: JOB ID: [id number] Quality ID # [id number]: Final reports with documentation of one or more dose reduction techniques (e.g., Au tomated exposure control, adjustment of the mA and/or kV according to patient size, use of iterative reconstruction technique) 2010 [employer]- All Rights Reserved Reading location - IP/workstation name: [email or web address]
--- NOTE | 2019-04-19 14:54 | EKG REPORT ---
SEVERITY:- ABNORMAL ECG - SINUS RHYTHM : Confirmed by: Derrek Wong 19-Apr-2019 14:54:11
== END 2019-04-19 15:00 | disposition home or self-care (01) ==
LOC: ER 07:48
DX: E04.1 Nontoxic single thyroid nodule (principal); R06.02 Shortness of breath; R07.9 Chest pain, unspecified; I10 Essential (primary) hypertension; Z88.6 Allergy status to analgesic agent
CPT/HCPCS: 93005; 99285; 96374; 36415; 83690; 85025; 80053; 84484; 71046; 76705; 71260; 93010; J3010

== ENCOUNTER → 2019-08-17 | Outpatient (CLI) | payer MEDICARE ==
--- NOTE | 2019-08-18 09:14 | RADIOLOGY REPORT (SQ) ---
EXAM DESCRIPTION: U/S THYROID/SFT TISS HD NECK COMPLETED DATE/TIME: 08/17/2019 5:25 pm REASON FOR STUDY: E04.9 NONTOXIC GOITER, UNSPECIFIED E04.9 NONTOXIC GOITER, UNSPECIFIED COMPARISON: None. TECHNIQUE: Dynamic and static blue-scale images acquired of the thyroid gland. Selected additional c olor/power Doppler images recorded. All images stored to PACS. LIMITATIONS: None. FINDINGS: RIGHT LOBE: Normal size. Homogeneous echotexture. There is a less than 1 cm nodule in th e right lobe of the thyroid gland. Small cystic areas majority of the lesion is solid. This corresp onds to a TR 3 lesion. Based on size no further workup is necessary. LEFT LOBE: The left lobe measures 6.2 x 3.3 x 3.3 cm. There is heterogeneous echotexture throughout. There is a dominant mass which is hypoechoic mainly solid. It demonstrates very mixed echogenicity . The lesion measures 5.0 x 2.7 x 3.5 cm. This corresponds to a TR 4 lesion. Based on size FNA is recommended. ISTHMUS: Normal size. Homogeneous echotexture. No cystic or solid masses. OTHER: No other significant finding. IMPRESSION: 5.0 x 2.7 x 3.5 cm nodule in the left lobe of the thyroid gland. The lesion corresponds to a TR 4 lesion and FNA is recommended. TECHNICAL DOCUMENTATION: JOB ID: [id number] [employer]- All Rights Reserved Reading location - IP/workstation name: [email or web address]
== END ==
LOC: RAD 16:14
PROVIDERS: ATTEND Nurse Practitioner Family
DX: E04.9 Nontoxic goiter, unspecified (principal)
CPT/HCPCS: 76536

== ENCOUNTER → 2019-09-12 | Outpatient (CLI) | payer MEDICARE ==
--- NOTE | 2019-09-12 09:15 | WOMENS IMAGING REPORT ---
EXAM DESCRIPTION: 3D DX MAMMO BILAT; U/S BREAST UNILAT LIMITED COMPLETED DATE/TIME: 09/12/2019 8:09 am; 09/12/2019 8:58 am REASON FOR STUDY: N63.41 UNSPECIFIED LUMP RIGHT BREAST; RT BREAST LUMP; LT BREAST LUMP N63.41 UNSPE CIFIED LUMP IN RIGHT BREAST, SUBAREOLAR COMPARISON: 08/23/2019. EXAM PARAMETERS: True lateral images of both breasts, exaggerated CCL image of the right breast, and spot compression CC image of the left breast, acquired with breast tomosynthesis. LIMITATIONS: None. FINDINGS: RIGHT BREAST MASSES: Circumscribed mass in the upper-outer breast. CALCIFICATIONS: No new or suspicious calcifications. ARCHITECTURAL DISTORTION: None. ASYMMETRY: None noted. OTHER: No other significant findings. LEFT BREAST MASSES: Circumscribed mass in the upper-outer breast. CALCIFICATIONS: No new or suspicious calcifications. ARCHITECTURAL DISTORTION: None. ASYMMETRY: None noted. OTHER: No other significant findings. BREAST ULTRASOUND: TECHNIQUE: Static and dynamic grayscale images acquired of the right and left breast in the specific areas of clinical/mammographic concern. Selected color Doppler images recorded. ELASTOGRAPHY PERFORMED: No. LIMITATIONS: None. FINDINGS: MASS: There are oval circumscribed masses consistent with lymph nodes in the upper-outer quadrant of both breasts. 3 x 6 mm lymph node in the upper-outer right breast and 3 x 7 mm and 4 x 7 mm lymph no levi in the upper-outer left breast. Smooth contour. Central fatty eric. No suspicious masses ident ified. Normal glandular tissue. ELASTOGRAPHY CHARACTERISTICS: Not applicable. OTHER: No other significant finding. IMPRESSION: Circumscribed masses in the upper-outer quadrant of both breasts with mammographic and s onographic characteristics of lymph nodes. BREAST DENSITY: a. The breasts are almost entirely fatty. BIRAD: ASSESSMENT: 2 Benign findings. RECOMMENDATION: RECOMMENDED FOLLOW UP: Birads 1 or 2: The patient should resume routine screening . SPECIFIC INTERVENTION/IMAGING/CONSULTATION RECOMMENDED:No additional intervention/ imaging/consultati on needed at this time. COMMUNICATION:The imaging findings were not discussed with the patient. Her referring provider has be en notified of the findings. COMMENT: The patient has been notified of the results by letter per MQSA requirements. Additional no tification policies are in place for contacting patient with suspicious or incomplete findings. Quality ID #[id number]: [employer] recommends an annual screening mammogram for women aged 40 years or over. This facility utilizes a reminder system to ensure that all patients receive reminder letters, and/or direct phone calls for appointments. This includes reminders for routine scr eening mammograms, diagnostic mammograms, or other Breast Imaging Interventions when appropriate. Th is patient will be placed in the appropriate reminder system. TECHNICAL DOCUMENTATION: FINDING NUMBER: (1) ASSESSMENT: (1) JOB ID: [id number] [employer]- All Rights Reserved Reading location - IP/workstation name: [email or web address]
== END ==
LOC: WI 07:40
PROVIDERS: ATTEND Nurse Practitioner Family
DX: N63.23 Unspecified lump in the left breast, lower outer quadrant (principal); N63.13 Unspecified lump in the right breast, lower outer quadrant
CPT/HCPCS: 76642; 77066; G0279; 77062

== ENCOUNTER 2019-10-31 12:23 | Emergency (ER) | payer MEDICARE ==
[2019-10-31] MEDS ORDERED: ASPIRIN 81 MG TABLET, CHEWABLE PO ONE (12:48)
--- NOTE | 2019-10-31 12:52 | ER Document Report ---
ED Medical Screen (RME) - General Chief Complaint: Shortness Of Breath Stated Complaint: SHORTNESS OF BREATH Time Seen by Provider: 10/31/19 12:43 Primary Care Provider: ROBBY TABARES NP [Primary Care Provider] - Follow up as needed Notes: Patient is a 54-year-old female with a history of hypertension and multiple surgeries who presents the emergency department with shortness of breath and chest tightness. She denies any pain. Patient states that she started to get short of breath at 12:00. 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 Denies asthma or COPD. Exam: Clear breath sounds. Tachycardic. Tachypneic. Blood pressure 181/121 I have greeted and performed a rapid initial assessment of this patient. A comprehensive ED assessment and evaluation of the patient, analysis of test results and completion of medical decision making process will be conducted by an additional ED providers. TRAVEL OUTSIDE OF THE [place] IN LAST 30 DAYS: No - Related Data Allergies/Adverse Reactions: amlodipine [From Norvasc] Allergy (Severe, Verified 04/19/19 08:03) Angioneurotic Edema crab Allergy (Verified 04/19/19 08:03) morphine Adverse Reaction (Verified 04/19/19 11:48) passes out Past Medical History - Social History Frequency of alcohol use: Rare Drug Abuse: None - Past Medical History Cardiac Medical History: Reports: Hx Hypertension Renal/ Medical History: Denies: Hx Peritoneal Dialysis Psychiatric Medical History: Denies: Hx Depression Past Surgical History: Reports: Hx Orthopedic Surgery - Possibly spinal surgery/fusion, Other - Vagal nerve stimulator Physical Exam - Vital signs Vitals: Temp Pulse Resp BP Pulse Ox 98.8 F 102 H 24 H 181/121 H 97 10/31/19 12:10/31/19 12:10/31/19 12:10/31/19 12:10/31/19 12:28 Course - Vital Signs Vital signs: Temp Pulse Resp BP Pulse Ox 98.8 F 102 H 24 H 181/121 H 97 10/31/19 12:10/31/19 12:28 10/31/19 12:10/31/19 12:10/31/19 12:28 Doctor's Discharge - Discharge Referrals: WITTLER,ROBBY, ELECTION ASSISTANT [Primary Care Provider] - Follow up as needed
[2019-10-31 13:19] LABS: ABSOLUTE BASOPHILS # (AUTO) 0.1 10^3/uL (0.0-0.2); ABSOLUTE EOSINOPHILS # (AUTO) 0.1 10^3/uL (0.0-0.6); ABSOLUTE MONOCYTES (AUTO) 0.4 10^3/uL (0.1-1.4); ABSOLUTE NEUT (AUTO) 4.5 10^3/uL (1.7-8.2); BASOPHILS % (AUTO) 0.7 % (0-2); HEMATOCRIT 41.2 % (36.0-47.0); LYMPHOCYTES % (AUTO) 37.8 % (13-45); MEAN CORPUSCULAR HEMOGLOBIN 32.3 pg (27.0-33.4); MEAN CORPUSCULAR VOLUME 95 fl (80-97); MONOCYTES % (AUTO) 4.6 % (3-13); PLATELET COUNT 364 10^3/uL (150-450); RED BLOOD COUNT 4.34 10^6/uL (3.72-5.28); RED CELL DISTRIBUTION WIDTH 13.1 % (11.5-14.0); SEGMENTED NEUTROPHILS % (AUTO) 55.9 % (42-78); TOTAL CELLS COUNTED % (AUTO) 100 %
--- NOTE | 2019-10-31 13:23 | RADIOLOGY REPORT (SQ) ---
EXAM DESCRIPTION: CHEST SINGLE VIEW COMPLETED DATE/TIME: 10/31/2019 1:13 pm REASON FOR STUDY: shortness of breath; chest pressure COMPARISON: 04/19/2019. EXAM PARAMETERS: NUMBER OF VIEWS: One view. TECHNIQUE: Single frontal radiographic view of the chest acquired. RADIATION DOSE: NA LIMITATIONS: None. FINDINGS: LUNGS AND PLEURA: No opacities, masses or pneumothorax. No pleural effusion. MEDIASTINUM AND HILAR STRUCTURES: No masses. Contour normal. HEART AND VASCULAR STRUCTURES: Heart normal in size. Normal vasculature. BONES: No acute findings. HARDWARE: Stimulator hardware. Hardware in the cervical spine. OTHER: No other significant finding. IMPRESSION: NO ACUTE RADIOGRAPHIC FINDING IN THE CHEST. TECHNICAL DOCUMENTATION: JOB ID: [id number] 2010 [employer]- All Rights Reserved Reading location - IP/workstation name: [email or web address]
[2019-10-31 13:39] LABS: ALBUMIN 4.7 g/dL (3.5-5.0); ALKALINE PHOSPHATASE 66 U/L (38-126); ANION GAP 8 (5-19); ASPARTATE AMINO TRANSFERASE 24 U/L (14-36); BILIRUBIN,TOTAL 0.4 mg/dL (0.2-1.3); BLOOD UREA NITROGEN 13 mg/dL (7-20); CALCIUM 9.6 mg/dL (8.4-10.2); CARBON DIOXIDE 25 mmol/L (22-30); CHLORIDE 107 mmol/L (98-107); GLUCOSE 91 mg/dL (75-110); TOTAL PROTEIN 7.8 g/dL (6.3-8.2)
[2019-10-31] MEDS ORDERED: HYDROCODONE/ACETAMINOPHEN 5-325 MG TABLET PO ONE (14:19)
[2019-10-31] MEDS ORDERED: HYDROCHLOROTHIAZIDE 25 MG TABLET PO ONE (14:19)
--- NOTE | 2019-10-31 15:27 | ER Document Report ---
ED General - General Chief Complaint: Shortness Of Breath Stated Complaint: SHORTNESS OF BREATH Time Seen by Provider: 10/31/19 12:43 Primary Care Provider: ROBBY TABARES NP [Primary Care Provider] - Follow up as needed Mode of Arrival: Ambulatory Information source: Patient TRAVEL OUTSIDE OF THE [place] IN LAST 30 DAYS: No - HPI Notes: Patient presents with chest pain shortness of breath and high blood pressure. She states she was on high blood pressure until approximately 1 month ago. She states her primary care doctor told her she no longer needed it and stopped her use of it. 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 She states she feels that the anxiety or having high blood pressure made her chest hurt and have shortness of breath on her way over. - Related Data Allergies/Adverse Reactions: amlodipine [From Norvasc] Allergy (Severe, Verified 04/19/19 08:03) Angioneurotic Edema crab Allergy (Verified 04/19/19 08:03) morphine Adverse Reaction (Verified 04/19/19 11:48) passes out Past Medical History - Social History Smoking Status: Current Every Day Smoker Frequency of alcohol use: Rare Drug Abuse: None Family History: Reviewed & Not Pertinent Patient has suicidal ideation: No Patient has homicidal ideation: No - Past Medical History Cardiac Medical History: Reports: Hx Hypertension Renal/ Medical History: Denies: Hx Peritoneal Dialysis Psychiatric Medical History: Denies: Hx Depression Past Surgical History: Reports: Hx Orthopedic Surgery - Possibly spinal surgery/fusion, Other - Vagal nerve stimulator Review of Systems - Review of Systems Constitutional: denies: Chills, Fever Cardiovascular: Chest pain. denies: Palpitations Respiratory: Short of breath. denies: Cough -: Yes All other systems reviewed and negative Physical Exam - Vital signs Vitals: Temp Pulse Resp BP Pulse Ox 98.8 F 102 H 24 H 181/121 H 97 10/31/19 12:28 10/31/19 12:28 10/31/19 12:28 10/31/19 12:28 10/31/19 12:28 Interpretation: Hypertensive, Tachycardic - General General appearance: Appears well, Alert - HEENT Head: Normocephalic, Atraumatic Eyes: Normal Pupils: PERRL - Respiratory Respiratory status: No respiratory distress Chest status: Nontender Breath sounds: Normal Chest palpation: Normal - Cardiovascular Rhythm: Regular Heart sounds: Normal auscultation Murmur: No - Abdominal Inspection: Normal Distension: No distension Bowel sounds: Normal Tenderness: Nontender Organomegaly: No organomegaly - Back Back: Normal, Nontender - Extremities General upper extremity: Normal inspection, Nontender, Normal color, Normal ROM, Normal temperature General lower extremity: Normal inspection, Nontender, Normal color, Normal ROM, Normal temperature, Normal weight bearing. No: Liborio's sign - Neurological Neuro grossly intact: Yes Cognition: Normal Orientation: AAOx4 Luis Coma Scale Eye Opening: Spontaneous [place] Coma Scale Verbal: Oriented [place] Coma Scale Motor: Obeys Commands Luis Coma Scale Total: 15 Speech: Normal Motor strength normal: LUE, RUE, LLE, RLE Sensory: Normal - Psychological Associated symptoms: Normal affect, Normal mood - Skin Skin Temperature: Warm Skin Moisture: Dry Skin Color: Normal Course - Re-evaluation Re-evalutation: 10/31/19 15:35 Patient presents with chest pain and shortness of breath. She developed the symptoms after realizing that her blood pressure was high. She feels better now. Her work-up was unremarkable. It seems that her blood pressure is elevated because her primary doctor recently stopped her blood pressure medicine. I will restart her on her blood pressure medicine and have her follow-up as an outpatient. - Vital Signs Vital signs: Temp Pulse Resp BP Pulse Ox 98.8 F 102 H 21 H 160/134 H 97 10/31/19 12:28 10/31/19 12:28 10/31/19 15:20 10/31/19 15:20 10/31/19 15:20 - Laboratory Result Diagrams: 10/31/19 13:05 10/31/19 13:05 - Diagnostic Test Radiology reviewed: Image reviewed, Reports reviewed - EKG Interpretation by Me EKG shows normal: Sinus rhythm Rate: Normal - 94 Rhythm: NSR [place]/QRS: No: Right axis deviation, Left axis deviation Discharge - Discharge Clinical Impression: Uncontrolled hypertension Condition: Stable Disposition: HOME, SELF-CARE Instructions: High Blood Pressure ([facility]) Additional Instructions: Please call your primary doctor as soon as possible to arrange follow-up for your elevated blood pressure. Prescriptions: Hydrochlorothiazide [Hydrodiuril 25 mg Tablet] 25 mg PO QAM #30 tablet Referrals: ROBBY TABARES, [employer] [Primary Care Provider] - Follow up in 3-5 days
[2019-10-31] MEDS ORDERED: CLONIDINE HCL 0.1 MG TABLET PO ONE (16:10)
[2019-10-31 16:15] VITALS: BP 173/123
--- NOTE | 2019-10-31 17:07 | EKG REPORT ---
SEVERITY:- BORDERLINE ECG - SINUS RHYTHM PROBABLE LEFT ATRIAL ABNORMALITY : Confirmed by: Julee Tamayo MD 31-Oct-2019 17:06:38
== END 2019-10-31 16:17 | disposition home or self-care (01) ==
LOC: ER 12:23
DX: I10 Essential (primary) hypertension (principal); R06.02 Shortness of breath; R07.9 Chest pain, unspecified; Z88.8 Allergy status to other drugs, medicaments and biological substances; F17.200 Nicotine dependence, unspecified, uncomplicated
CPT/HCPCS: 93005; 99285; 36415; 83735; 85025; 80053; 84484; 85379; 71045; 93010; A9270 ×4

== ENCOUNTER 2019-11-10 08:03 | Day surgery (SDC) | payer MEDICARE ==
[~2019-11-10 08:03] MED LIST: PROPOFOL INJ 200 MG/20 ML VIAL IV ONE
[2019-11-10 10:49] VITALS: BP 118/87
--- NOTE | 2019-11-10 11:30 | Operative Report ---
Operative Report DATE OF SURGERY: 11/10/19 Operative Report: The risks, benefits and alternatives of the procedure including the risk of bleeding, perforation requiring surgery have been explained to the patient in detail and informed consent has been obtained. Patient is placed in a left, lateral decubital position. Timeout was called. Propofol medication is administered. Rectal examination is done which did not reveal any masses, tears or fissures. An Olympus videoscope was introduced into the patient's rectum. The scope was then carefully advanced all the way to the cecum. The cecum was identified by the usual anatomical landmarks including the ileocecal valve as well as the appendiceal office. Photodocumentation is obtained. Scope was then sequentially pulled back via the various segments of the colon including the ascending colon, back flexure, transverse colon, splenic flexure, descending col on and finally into the rectosigmoid portions of the colon. Retroflexion maneuvers performed. PREOPERATIVE DIAGNOSIS: Positive Cologuard testing POSTOPERATIVE DIAGNOSIS: Adenomatous polyp noted in the descending colon removed via snare polypectomy and retrieved. Internal hemorrhoids OPERATION: Colonoscopy with snare polypectomy SURGEON: PETE PICHARDO ANESTHESIA: LMAC TISSUE REMOVED OR ALTERED: As noted above. COMPLICATIONS: None. ESTIMATED BLOOD LOSS: None. INTRAOPERATIVE FINDINGS: As noted above. PROCEDURE: Patient tolerated the procedure well. No immediate postprocedure complications are noted. Patient is discharged in good condition. Discharge date 11/10/2019. Discharge diet: Regular. Discharge activity: Regular. 2 to 3-week follow-up to discuss findings. Patient is instructed to call the office or proceed to the emergency room should there be any further problems or questions. Wait on the pathology. 3 to 5-year surveillance colonoscopy No further need for Cologuard testing
== END 2019-11-10 10:50 | disposition home or self-care (01) ==
LOC: END 08:03
PROVIDERS: ATTEND Internal Medicine Gastroenterology
DX: D12.4 Benign neoplasm of descending colon (principal); K64.8 Other hemorrhoids; I10 Essential (primary) hypertension; F17.210 Nicotine dependence, cigarettes, uncomplicated; Z88.5 Allergy status to narcotic agent; Z88.8 Allergy status to other drugs, medicaments and biological substances
CPT/HCPCS: 45380; 45385; 88305 ×2; 00811; J2704; 811

== ENCOUNTER → 2019-12-01 | Outpatient (CLI) | payer MEDICARE ==
--- NOTE | 2019-12-01 13:34 | RADIOLOGY REPORT (SQ) ---
EXAM DESCRIPTION: CT HEAD WITH COMPLETED DATE/TIME: 12/01/2019 12:55 pm REASON FOR STUDY: R51 HEADACHE R51 HEADACHE COMPARISON: None. TECHNIQUE: Axial images acquired through the brain with intravenous contrast. Images reviewed with b one, brain and subdural windows. Additional sagittal and coronal reconstructions were generated. Lilly ges stored on PACS. All CT scanners at this facility use dose modulation, iterative reconstruction, and/or weight based d osing when appropriate to reduce radiation dose to as low as reasonably achievable (ALARA). [facility]: Dose Right [facility]: CareDose [facility]: Dose Right [facility]: Teradose 4D [facility]: Captio CONTRAST TYPE AND DOSE: contrast/concentration: Isovue 350.00 mg/ml; Total Contrast Delivered: 50.0 ml; Total Saline Delivered: 55.0 ml RENAL FUNCTION: Creatinine 0.9 RADIATION DOSE: CT Rad equipment meets quality standard of care and radiation dose reduction techniq ues were employed. CTDIvol: 48.6 - 48.7 mGy. DLP: 1909 mGy-cm.. LIMITATIONS: None. FINDINGS: VENTRICLES: Normal size and contour. CEREBRUM: No masses. No hemorrhage. No midline shift. Normal blue/white matter differentiation. No ev idence for acute infarction. No enhancing lesions. CEREBELLUM: Posterior fossa arachnoid cyst. No solid masses. No hemorrhage. No alteration of density . No evidence for acute infarction. No enhancing lesions. EXTRA-AXIAL SPACES: No fluid collections. No enhancing lesions. ORBITS AND GLOBE: No intra- or extraconal masses. Normal contour of globe without masses. CALVARIUM: No fracture. PARANASAL SINUSES: No fluid or mucosal thickening. SOFT TISSUES: No mass or hematoma. OTHER: No other significant finding. IMPRESSION: Posterior fossa arachnoid cyst. No acute findings in the brain. EVIDENCE OF ACUTE STROKE: NO. TECHNICAL DOCUMENTATION: JOB ID: [id number] Quality ID # [id number]: Final reports with documentation of one or more dose reduction techniques (e.g., Au tomated exposure control, adjustment of the mA and/or kV according to patient size, use of iterative reconstruction technique) 2010 [employer]- All Rights Reserved Reading location - IP/workstation name: [email or web address]
== END ==
LOC: RAD 12:15
PROVIDERS: ATTEND Nurse Practitioner Family
DX: R51 Headache (principal)
CPT/HCPCS: 70460; 82565